=== PATIENT | female | born 1975 | race African-American/Black ===

== ENCOUNTER 2016-09-01 22:44 | Emergency (ER) | payer MEDICARE, MEDICAID ==
--- NOTE | 2016-09-02 04:43 | ER Document Report ---
ED General - General Chief Complaint: Vaginal Discharge Stated Complaint: VAGINAL DISCHARGE/PAIN Notes: Patient is 41 of female presents with complaint of some vaginal pain. It started last week 4 hours. She says that she does douche on a regular basis. She says that she thinks may be she's done too much is now she now has a lot of pelvic irritation. No abnormal discharge. No fevers. No vomiting. No lower abdominal pain. No other complaints at this time. TRAVEL OUTSIDE OF THE [place] IN LAST 30 DAYS: No - Related Data Allergies/Adverse Reactions: Iodinated Contrast Media - Oral and [IV Dye, Iodine Containing] Allergy ( Verified 09/09/15 09:04) iodine [Iodine] Allergy (Verified 09/09/15 09:04) Penicillins Allergy (Verified 09/09/15 09:04) Shellfish * [Shellfish] Allergy (Verified 09/09/15 09:04) Past Medical History - Social History Smoking Status: Unknown if Ever Smoked Frequency of alcohol use: None Drug Abuse: None Family History: DM, Hypertension Patient has suicidal ideation: No Patient has homicidal ideation: No - Past Medical History Cardiac Medical History: Reports: Hx Hypertension Pulmonary Medical History: Reports: Hx Bronchitis Endocrine Medical History: Reports: Hx Diabetes Mellitus Type 2 Renal/ Medical History: Denies: Hx Peritoneal Dialysis Psychiatric Medical History: Reports: Hx Bipolar Disorder, Hx Depression Past Surgical History: Reports: Hx Adenoidectomy, Hx Section - X4, Hx Cholecystectomy, Hx Tubal Ligation - Immunizations Hx Diphtheria, Pertussis, Tetanus Vaccination: No Review of Systems - Review of Systems Notes: My Normal Review Basic REVIEW OF SYSTEMS: CONSTITUTIONAL : Denies fever, chills, or sweats. Denies recent illness. GASTROINTESTINAL: Denies abdominal pain. Denies nausea, vomiting, or diarrhea. Denies constipation. Last BM: GENITOURINARY: Denies difficulty urinating, painful urination, burning, frequency, or blood in urine. FEMALE GENITOURINARY: Vaginal pain MUSCULOSKELETAL: Denies neck or back pain or joint pain or swelling. SKIN: Denies rash or skin lesions. NEUROLOGICAL: Denies altered mental status or loss of consciousness. Denies headache. Denies weakness or paralysis or loss of use of either side. Denies problems with gait or speech. Denies sensory or motor loss. ALL OTHER SYSTEMS REVIEWED AND NEGATIVE. Physical Exam - Vital signs Vitals: Temp Pulse BP Pulse Ox 98.0 F 98 132/84 H 97 09/01/16 22:50 09/01/16 22:50 09/01/16 22:50 09/01/16 22:50 - Notes Notes: General Appearance: Well nourished, alert, cooperative, no acute distress, mild to moderate obvious discomfort. Vitals: reviewed, See vital signs table. Lungs: No wheezing, No rales, No rhonci, No accessory muscle use, good air exchange bilaterally. Heart: Normal rate, Regular rythm, No murmur, no rub Abdomen: Normal BS, soft, No rigidity, No abdominal tenderness, No guarding, no rebound, no abdominal masses, no organomegaly Pelvic: Normal external genitalia. No blood in vaginal vault. No abnormal discharge. Extremities: strength 5/5 in all extremities, good pulses in all extremities, no swelling or tenderness in the extremities, no edema. Skin: warm, dry, appropriate color, no rash Neuro: speech clear, oriented x 3, normal affect, responds appropriately to questions. Course - Vital Signs Vital signs: Temp Pulse Resp BP Pulse Ox 98.2 F 79 20 104/53 L 96 09/02/16 05:24 09/02/16 05:24 09/02/16 05:24 09/02/16 05:24 09/02/16 05:24 - Transfer of Care Notes: 09/02/16 06:46 I do not see abnormality pelvic exam. I suspect patient probably has some vaginal irritation from frequent douche treatments that she doesn't home. I encourage her to have cut back and to not do any further douche treatments until her symptoms have completely resolved. No sexual activity until symptoms are resolved. Patient encouraged to return to ER if she has fevers, worsening pain, abnormal discharge, or any further concerns. Patient agrees with plan will be discharged home. Dictation of this chart was performed using voice recognition software; therefore, there may be some unintended grammatical errors. Discharge - Discharge Clinical Impression: Vaginal pain Condition: Good Disposition: HOME, SELF-CARE Instructions: Oral Narcotic Medication ([facility]) Additional Instructions: PLease avoid sexual activity for until you are completely pain free. Please return to the ER immediately if you develop worsening pain, fevers, or feel unwell. Please follow up with your doctor for reevaluation in 3-5 days. Forms: Return to School Referrals: GUS DARLING FNP [Primary Care Provider] - Follow up in 3-5 days
[2016-09-02] MEDS ORDERED: HYDROCODONE/ACETAMINOPHEN 5-325 MG 6 TAB/DSPK PO PRN (04:45)
[2016-09-02 05:25] VITALS: BP 104/53
[2016-09-02 05:27] LABS: CHLAM PCR NOT DETECTED (NOT DETECT)
== END 2016-09-02 05:28 | disposition home or self-care (01) ==
LOC: ER 22:44
DX: N89.8 Other specified noninflammatory disorders of vagina (principal); R10.2 Pelvic and perineal pain; I10 Essential (primary) hypertension; E11.9 Type 2 diabetes mellitus without complications; Z90.49 Acquired absence of other specified parts of digestive tract; Z91.013 Allergy to seafood; Z88.0 Allergy status to penicillin; Z98.51 Tubal ligation status
CPT/HCPCS: 99283; 87210; 87491; 87591; A9270

== ENCOUNTER → 2016-09-05 | Outpatient (CLI) | payer MEDICARE, MEDICAID ==
--- NOTE | 2016-09-05 12:47 | WOMENS IMAGING REPORT ---
EXAM DESCRIPTION: BILAT SCREENING MAMMO W/CAD COMPLETED DATE/TIME: 09/05/2016 10:06 am REASON FOR STUDY: Z12.31, ROUTINE SCREENING MAMMO Z12.31 ENCNTR SCREEN MAMMOGRAM FOR MALIGNANT NEOP LASM OF DARWIN COMPARISON: None. TECHNIQUE: Standard craniocaudal and mediolateral oblique views of each breast recorded using Domoba l acquisition. LIMITATIONS: None. FINDINGS: Findings present which are benign by mammographic criteria. No suspicious masses, calcifi cations or architectural distortion. Benign calcifications left breast. Read with the assistance of CAD. .[facility] - R2 Cenova Version 1.3 .[facility] - R2 Cenova Version 1.3 .[facility] - R2 Cenova Version 2.4 .[facility] [place] Cenova Version 2.4 .[facility] - R2 Butcher Version 9.2 Benign mammographic findings may include one or more of the following: Smooth masses, popcorn/rim/co arse calcifications, asymmetries, post-procedure changes, and lesions with long-standing stability. BREAST DENSITY: a. The breasts are almost entirely fatty. BIRAD: 2 BENIGN FINDING(S) RECOMMENDATION: ROUTINE SCREENING COMMENT: PATIENT NOTIFIED BY LETTER. The [employer] [place] [employer] [employer] recommends an annual screening mammogram for women aged 40 years or over. Each patient will receive a reminder prior to the anniversary date of her mammogram. The [employer] [place] [employer] ([employer]) has developed recommendations for screening MRI of the breast s in certain patient populations, to be used in conjunction with mammography. Breast MRI surveillanc e may be appropriate for women with more than 20% lifetime risk of developing breast cancer as deter mined by genetic testing, significant family history of the disease, or history of mantle radiation f or Hodgkins Disease. ACR Practice Guidelines 2008. TECHNICAL DOCUMENTATION: FINDING NUMBER: (1) ASSESSMENT: (1) JOB ID: [id number] [employer]- All Rights Reserved
== END ==
LOC: WI 09:26
PROVIDERS: ATTEND Nurse Practitioner Family
DX: Z12.31 Encounter for screening mammogram for malignant neoplasm of breast (principal)
CPT/HCPCS: 77067; G0202

== ENCOUNTER 2016-09-27 23:12 | Emergency (ER) | payer MEDICARE, MEDICAID ==
[2016-09-27] MEDS ORDERED: ASPIRIN 81 MG TABLET, CHEWABLE PO ONE (23:38)
[2016-09-28 02:01] LABS: ABSOLUTE BASOPHILS # (AUTO) 0.1 10^3/uL (0.0-0.2); ABSOLUTE EOSINOPHILS # (AUTO) 0.1 10^3/uL (0.0-0.6); ABSOLUTE LYMPHOCYTES (AUTO) 4.5 10^3/uL (0.5-4.7); ABSOLUTE MONOCYTES (AUTO) 0.6 10^3/uL (0.1-1.4); ABSOLUTE NEUT (AUTO) 5.5 10^3/uL (1.7-8.2); EOSINOPHILS % (AUTO) 1.1 % (0-6); HEMATOCRIT 37.8 % (36.0-47.0); HEMOGLOBIN 12.6 g/dL (12.0-15.5); LYMPHOCYTES % (AUTO) 41.7 % (13-45); MEAN CORPUSCULAR HGB CONC 33.4 g/dL (32.0-36.0); MEAN CORPUSCULAR VOLUME 90 fl (80-97); MONOCYTES % (AUTO) 5.3 % (3-13); RED BLOOD COUNT 4.21 10^6/uL (3.72-5.28); SEGMENTED NEUTROPHILS % (AUTO) 50.9 % (42-78); WHITE BLOOD COUNT 10.8 10^3/uL (4.0-10.5)
[2016-09-28 02:22] LABS: ALANINE AMINOTRANSFERASE 18 U/L (9-52); ALKALINE PHOSPHATASE 119 U/L (38-126); ANION GAP 9 (5-19); ASPARTATE AMINO TRANSFERASE 44 U/L (14-36); BILIRUBIN,TOTAL 0.4 mg/dL (0.2-1.3); BLOOD UREA NITROGEN 10 mg/dL (7-20); CALCIUM 9.8 mg/dL (8.4-10.2); CARBON DIOXIDE 32 mmol/L (22-30); CHLORIDE 102 mmol/L (98-107); CREATINE KINASE 37 U/L (30-135); CREATININE RESULT 0.64 mg/dL (0.52-1.25); GLUCOSE 103 mg/dL (75-110); POTASSIUM 4.5 mmol/L (3.6-5.0); SODIUM 142.5 mmol/L (137-145); TOTAL PROTEIN 8.2 g/dL (6.3-8.2)
--- NOTE | 2016-09-28 02:29 | ER Document Report ---
ED General - General Chief Complaint: Chest Pain Stated Complaint: CHEST PAIN Notes: Patient is a 41-year-old female who presents with complaint of chest pain. Pain is in the right upper chest and radiates into the right trapezius area and causes a mild headache. She says she woke up when she rolled around in bed and felt the pain. She says the pain is worse when she coughs or if she tries to move her body forward. She says the pain is now much improved but is still there slightly. No fevers. No vomiting. No diarrhea. Patient says her pain is much improved in comparison to before. No history of hypertension. She does have a history diabetes. No history of coronary disease. No recent fevers or infections. TRAVEL OUTSIDE OF THE [place] IN LAST 30 DAYS: No - Related Data Allergies/Adverse Reactions: Iodinated Contrast Media - Oral and [IV Dye, Iodine Containing] Allergy ( Verified 09/09/15 09:04) iodine [Iodine] Allergy (Verified 09/09/15 09:04) Penicillins Allergy (Verified 09/09/15 09:04) Shellfish * [Shellfish] Allergy (Verified 09/09/15 09:04) Past Medical History - Social History Smoking Status: Unknown if Ever Smoked Frequency of alcohol use: None Drug Abuse: None Family History: DM, Hypertension Patient has suicidal ideation: No Patient has homicidal ideation: No - Past Medical History Cardiac Medical History: Reports: Hx Hypertension Pulmonary Medical History: Reports: Hx Bronchitis Endocrine Medical History: Reports: Hx Diabetes Mellitus Type 2 Renal/ Medical History: Denies: Hx Peritoneal Dialysis Psychiatric Medical History: Reports: Hx Bipolar Disorder, Hx Depression Past Surgical History: Reports: Hx Adenoidectomy, Hx Section - X4, Hx Cholecystectomy, Hx Tubal Ligation - Immunizations Hx Diphtheria, Pertussis, Tetanus Vaccination: No Review of Systems - Review of Systems Notes: My Normal Review Basic REVIEW OF SYSTEMS: CONSTITUTIONAL : Denies fever, chills, or sweats. Denies recent illness. EENT: Denies eye, ear, throat, or mouth pain or symptoms. Denies nasal or sinus congestion. CARDIOVASCULAR: Has chest pain RESPIRATORY: Some shortness of breath with the pain. GASTROINTESTINAL: Denies abdominal pain. Denies nausea, vomiting, or diarrhea. Denies constipation. Last BM: GENITOURINARY: Denies difficulty urinating, painful urination, burning, frequency, or blood in urine. FEMALE GENITOURINARY: Denies vaginal bleeding, abnormal or irregular periods. LMP: MUSCULOSKELETAL: Denies neck or back pain or joint pain or swelling. SKIN: Denies rash or skin lesions.nds. NEUROLOGICAL: Denies altered mental status or loss of consciousness. Denies headache. Denies weakness or paralysis or loss of use of either side. Denies problems with gait or speech. Denies sensory or motor loss. ALL OTHER SYSTEMS REVIEWED AND NEGATIVE. Physical Exam - Vital signs Vitals: Resp 23 H 09/28/16 01:53 - Notes Notes: General Appearance: Well nourished, alert, cooperative, no acute distress, no obvious discomfort. Vitals: reviewed, See vital signs table. Head: no swelling or tenderness to the head Eyes: PERRL, EOMI, Conjuctiva clear Mouth: No decreasd moisture Chest wall: Pain is reproducible with palpation of the anterior chest wall and palpation of the trapezius muscle and the right side. Patient has significant increase in pain when she grabs the bed rails impulsive self forward off the bed. Neck: Supple, no neck tenderness, No thyromegaly Lungs: No wheezing, No rales, No rhonci, No accessory muscle use, good air exchange bilaterally. Heart: Normal rate, Regular rythm, No murmur, no rub Abdomen: Normal BS, soft, No rigidity, No abdominal tenderness, No guarding, no rebound, no abdominal masses, no organomegaly Extremities: strength 5/5 in all extremities, good pulses in all extremities, no swelling or tenderness in the extremities, no edema. Skin: warm, dry, appropriate color, no rash Neuro: speech clear, oriented x 3, normal affect, responds appropriately to questions. Course - Vital Signs Vital signs: Temp Pulse Resp BP Pulse Ox 17 126/81 H 97 09/28/16 06:01 09/28/16 06:00 09/28/16 06:01 - Laboratory Result Diagrams: 09/28/16 01:30 09/28/16 01:30 Laboratory results interpreted by me: 09/28/16 09/28/16 01:30 01:30 WBC 10.8 H Carbon Dioxide 32 H AST 44 H - EKG Interpretation by Me Additional EKG results interpreted by me: 09/28/16 02:29 EKG is reviewed and interpreted by me. EKG shows normal sinus rhythm with rate of [address] segment elevation or depression. No ischemic T wave inversions. AL interval, QRS duration, QTC intervals are within normal range. Old EKG for comparison is from 04/09/2016. 09/28/16 05:28 EKG #2 is reviewed and interpreted by me. EKG shows sinus rhythm with rate of 85 eats per minute. No ST segment elevation or depression. No ischemic T wave inversions. AL level, QRS duration, QTC intervals are within normal range. - Transfer of Care Notes: 09/28/16 06:57 I feel patient is safe to be discharged home. She looks very well. Patient's pain seems more consistent muscle skeletal disease. Her heart score is 2. She has a negative troponin and delta troponin. Her initial EKG and her repeat EKG are both negative. Her pain is worse with palpation and with movement. At this time I feel she is very low risk and safe to be discharged home to follow- up with primary care doctor for possible outpatient stress testing. I encourage her to return to ER if she has change in location of pain, increased pain, or difficulty breathing. Patient agrees with plan and will be discharged home. Dictation of this chart was performed using voice recognition software; therefore, there may be some unintended grammatical errors. Discharge - Discharge Clinical Impression: Chest pain Qualifiers: Chest pain type: unspecified Qualified Code(s): R07.9 - Chest pain, unspecified Condition: Good Disposition: HOME, SELF-CARE Additional Instructions: CHEST PAIN OF UNCLEAR CAUSE: The exact cause of your chest pain isn't clear. Fortunately, there is no evidence of a dangerous medical condition. Further testing may be required to find the source of the pain. Most often, we find that this pain is coming from the chest wall -- the muscles or rib joints in the chest. But chest pain can come from the lung and lung lining, the esophagus, the heart valves or heart lining, and even the stomach or gallbladder. Rest. Eat lightly until the pain is gone. We may prescribe medicine for pain and inflammation. You should call the physician immediately if the pain radiates to the shoulder, jaw or arms; if you start to run a fever or develop a cough; or if you develop shortness of breath, or other new or alarming symptoms. NORMAL EXAM AND WORKUP: At this time, your examination and workup show no significant abnormality. No significant abnormal physical findings were noted. All laboratory, EKG, and imaging (x-ray) studies that were ordered show no significant abnormality. Although your examination and all studies that were ordered showed no significant abnormal finding, there are no examinations and no studies that are 100% accurate. There is always the possibility that some abnormality could exist and not be detected with physical examination or within the limits and capabilities of laboratory and other studies. You should return or follow up as you were instructed on your visit today for further evaluation if your symptoms do not resolve. CHEST WALL PAIN: Your chest pain may be coming from the chest wall. This is often caused by straining the muscles or joints in the chest during physical activity, direct trauma, coughing, or vigorous vomiting. Persons with arthritis are especially prone to this type of pain, due to inflammation of the cartilage joints near the breast bone. Occasionally, no cause can be found. Rest from strenuous physical activity. This kind of chest pain is usually made worse by movement of the chest. Depending on the symptoms, we may prescribe medicine for pain, muscle relaxation, and antiinflammatory effects. If the pain is new, and seems to be due to muscle strain, cold packs can help. Otherwise, apply gentle warmth to the painful area for 15 minutes every hour or two. You should call contact the doctor immediately if things change. Further evaluation is needed if you develop a fever or cough, if the nature of the pain changes, or if you become short of breath. FOLLOW-UP CARE: If you have been referred to a physician for follow-up care, call the physician s office for an appointment as you were instructed or within the next two days. If you experience worsening or a significant change in your symptoms, notify the physician immediately or return to the Emergency Department at any time for re-evaluation. Please return to the ER immediately if you have worsening pain, pain that is a dislocation of her chest, difficulty breathing, or if you feel that your symptoms are worsening. Please follow-up with your doctor for reevaluation and for possible referral for outpatient stress testing. Prescriptions: Naproxen [Naprosyn 250 mg Tablet] 250 mg PO BID #20 tablet Referrals: MICHELLE MCDANIEL MD [Primary Care Provider] - Follow up in 3-5 days
[2016-09-28 02:33] LABS: CREATINE KINASE MB 0.41 ng/mL (<4.55)
[2016-09-28 02:36] LABS: TROPONIN I < 0.012 ng/mL
[2016-09-28 07:15] VITALS: BP 134/83
--- NOTE | 2016-09-28 10:35 | EKG REPORT ---
SEVERITY:- ABNORMAL ECG - SINUS RHYTHM NONSPECIFIC T ABNORMALITIES, ANT-LAT LEADS : Confirmed by: Fatoumata Garcia 28-Sep-2016 10:35:05
--- NOTE | 2016-09-28 10:35 | EKG REPORT ---
SEVERITY:- NORMAL ECG - SINUS RHYTHM : Confirmed by: Fatoumata Garcia 28-Sep-2016 10:34:30
== END 2016-09-28 07:15 | disposition home or self-care (01) ==
LOC: ER 23:12
DX: R07.9 Chest pain, unspecified (principal); R51 Headache; I10 Essential (primary) hypertension; E11.9 Type 2 diabetes mellitus without complications; Z88.0 Allergy status to penicillin; Z91.013 Allergy to seafood; Z90.49 Acquired absence of other specified parts of digestive tract; Z98.51 Tubal ligation status
CPT/HCPCS: 93005 ×2; 99285; 36415; 82553; 82550; 85025; 80053; 84484; 71010; 93010 ×2; A9270

== ENCOUNTER 2016-11-09 21:36 | Emergency (ER) | payer MEDICARE, MEDICAID ==
[2016-11-10 04:08] LABS: ABSOLUTE BASOPHILS # (AUTO) 0.1 10^3/uL (0.0-0.2); ABSOLUTE EOSINOPHILS # (AUTO) 0.1 10^3/uL (0.0-0.6); ABSOLUTE LYMPHOCYTES (AUTO) 4.3 10^3/uL (0.5-4.7); ABSOLUTE MONOCYTES (AUTO) 0.7 10^3/uL (0.1-1.4); ABSOLUTE NEUT (AUTO) 5.3 10^3/uL (1.7-8.2); BASOPHILS % (AUTO) 0.8 % (0-2); EOSINOPHILS % (AUTO) 0.8 % (0-6); HEMATOCRIT 37.4 % (36.0-47.0); HEMOGLOBIN 12.6 g/dL (12.0-15.5); HGB HCT DIFFERENCE 0.4; LYMPHOCYTES % (AUTO) 41.2 % (13-45); MEAN CORPUSCULAR HEMOGLOBIN 29.9 pg (27.0-33.4); MEAN CORPUSCULAR HGB CONC 33.6 g/dL (32.0-36.0); MEAN CORPUSCULAR VOLUME 89 fl (80-97); MONOCYTES % (AUTO) 6.8 % (3-13); RED CELL DISTRIBUTION WIDTH 13.8 % (11.5-14.0); SEGMENTED NEUTROPHILS % (AUTO) 50.4 % (42-78); WHITE BLOOD COUNT 10.6 10^3/uL (4.0-10.5)
[2016-11-10 04:12] LABS: APPEARANCE,URINE SLIGHTLY-CLOUDY; BILIRUBIN,URINE NEGATIVE (NEGATIVE); GLUCOSE, URINE NEGATIVE (NEGATIVE); KETONES,URINE NEGATIVE (NEGATIVE); LEUKOCYTE ESTERASE,URINE NEGATIVE (NEGATIVE); NITRITE,URINE NEGATIVE (NEGATIVE); PROTEIN,URINE NEGATIVE (NEGATIVE); URINE SPECIFIC GRAVITY 1.012; UROBILINOGEN,URINE NEGATIVE mg/dL (<2.0)
[2016-11-10 04:26] LABS: ALANINE AMINOTRANSFERASE 24 U/L (9-52); ALBUMIN 4.1 g/dL (3.5-5.0); ALKALINE PHOSPHATASE 86 U/L (38-126); ANION GAP 12 (5-19); ASPARTATE AMINO TRANSFERASE 27 U/L (14-36); BILIRUBIN,DIRECT 0.3 mg/dL (0.0-0.4); BILIRUBIN,TOTAL 0.4 mg/dL (0.2-1.3); BLOOD UREA NITROGEN 10 mg/dL (7-20); CALCIUM 9.5 mg/dL (8.4-10.2); CARBON DIOXIDE 25 mmol/L (22-30); CHLORIDE 105 mmol/L (98-107); CREATININE RESULT 0.66 mg/dL (0.52-1.25); GLUCOSE 111 mg/dL (75-110); SODIUM 141.6 mmol/L (137-145); TOTAL PROTEIN 7.7 g/dL (6.3-8.2)
--- NOTE | 2016-11-10 04:46 | ER Document Report ---
ED GI/ - General Chief Complaint: Diarrhea Stated Complaint: NAUSEA,DIARRHEA,ABDOMINAL PAIN Mode of Arrival: Ambulatory Information source: Patient Notes: 41-year-old Female presents to the emergency department complaining of generalized abdominal cramping with associated nausea and diarrhea. Reports 3 episodes of non-bloody diarrhea this evening. Reports persistent nausea without vomiting. Denies fever, chest pain, shortness of breath. Reports similar episodes in the past. TRAVEL OUTSIDE OF THE [place] IN LAST 30 DAYS: No - HPI Patient complains to provider of: Abdominal pain, Diarrhea Onset: This evening Timing/Duration: Intermittent, Persistent Quality of pain: Cramping Severity at maximum: Moderate Severity in ED: Almost gone Pain Level: 2 Vaginal bleeding (Compared to normal period): None Associated symptoms: Diarrhea, Nausea Similar symptoms previously: Yes Recently seen / treated by doctor: No - Related Data Allergies/Adverse Reactions: Iodinated Contrast Media - Oral and [IV Dye, Iodine Containing] Allergy ( Verified 11/09/16 22:25) iodine [Iodine] Allergy (Verified 11/09/16 22:25) Penicillins Allergy (Verified 11/09/16 22:25) Shellfish * [Shellfish] Allergy (Verified 11/09/16 22:25) Past Medical History - General Information source: Patient - Social History Smoking Status: Never Smoker Frequency of alcohol use: None Drug Abuse: None Lives with: Family Family History: DM, Hypertension Patient has suicidal ideation: No Patient has homicidal ideation: No - Past Medical History Cardiac Medical History: Reports: Hx Hypertension Pulmonary Medical History: Reports: Hx Bronchitis Endocrine Medical History: Reports: Hx Diabetes Mellitus Type 2 Renal/ Medical History: Denies: Hx Peritoneal Dialysis Psychiatric Medical History: Reports: Hx Bipolar Disorder, Hx Depression Past Surgical History: Reports: Hx Adenoidectomy, Hx Section - X4, Hx Cholecystectomy, Hx Tubal Ligation - Immunizations Hx Diphtheria, Pertussis, Tetanus Vaccination: Yes Review of Systems - Review of Systems Constitutional: No symptoms reported EENT: No symptoms reported Cardiovascular: No symptoms reported Respiratory: No symptoms reported Gastrointestinal: See HPI Genitourinary: No symptoms reported Female Genitourinary: No symptoms reported Musculoskeletal: No symptoms reported Skin: No symptoms reported Hematologic/Lymphatic: No symptoms reported Neurological/Psychological: No symptoms reported -: Yes All other systems reviewed and negative Physical Exam - Vital signs Vitals: Temp Pulse Resp BP Pulse Ox 98.3 F 102 H 20 135/76 H 97 11/09/16 22:26 11/09/16 22:26 11/09/16 22:26 11/09/16 22:26 11/09/16 22:26 - General General appearance: Appears well, Alert In distress: None - HEENT Head: Normocephalic, Atraumatic Eyes: Normal Conjunctiva: Normal Pupils: PERRL Ears: Normal External canal: Normal Tympanic membrane: Normal Sinus: Normal Nasal: Normal Mouth/Lips: Normal Mucous membranes: Normal, Moist Pharynx: Normal. No: Blood in hypopharynx, Erythema, Exudate, Peritonsillar abscess, Post nasal drainage, Retropharyngeal abscess, Tonsillar hypertrophy, Uvular edema, Potential airway comprom., Other Neck: Normal. No: Anterior cervical chain, Posterior cervical chain, Lymphadenopathy, Meningismus, Subcutaneous emphysema - Respiratory Respiratory status: No respiratory distress Chest status: Nontender Breath sounds: Normal - CTAB Chest palpation: Normal - Cardiovascular Rhythm: Regular Heart sounds: Normal auscultation Murmur: No Pulses: Normal: Radial Normal capillary refill: Yes - Abdominal Inspection: Normal Distension: No distension Bowel sounds: Normal Tenderness: Nontender. No: Tender, McBurney's point, Cramer's sign, Guarding, Rebound, Other Organomegaly: No organomegaly - Back Back: Normal, Nontender - Extremities General upper extremity: Normal inspection, Nontender, Normal color, Normal ROM , Normal strength, Normal temperature. No: Edema General lower extremity: Normal inspection, Nontender, Normal color, Normal ROM , Normal strength, Normal temperature, Normal weight bearing. No: Edema, Gerald' s sign - Neurological Neuro grossly intact: Yes Cognition: Normal Orientation: AAOx4 Reeders Coma Scale Eye Opening: Spontaneous Reeders Coma Scale Verbal: Oriented Reeders Coma Scale Motor: Obeys Commands Anders Coma Scale Total: 15 Speech: Normal Motor strength normal: LUE, RUE, LLE, RLE Sensory: Normal - Psychological Associated symptoms: Normal affect, Normal mood - Skin Skin Temperature: Warm Skin Moisture: Dry Skin Color: Normal Course - Re-evaluation Re-evalutation: 11/10/16 04:47 Patient hemodynamically stable, in no distress, afebrile, nontoxic, and appears well-hydrated. Labs and acute abdominal series x-ray unremarkable. Patient presentation and physical exam findings not suggestive of peritonitis, appendicitis, cholecystitis, or other emergent etiology at this time. Patient tolerating oral fluids without difficulty or vomiting at this time. Patient appears stable for discharge and agrees with home care, follow-up with PCP, and ED return precautions. - Vital Signs Vital signs: Temp Pulse Resp BP Pulse Ox 98.3 F 88 20 148/91 H 97 11/09/16 22:26 11/10/16 05:11 11/10/16 05:11 11/10/16 05:11 11/10/16 05:11 - Laboratory Result Diagrams: 11/10/16 03:40 11/10/16 03:40 Laboratory results interpreted by me: 11/10/16 11/10/16 03:40 03:40 WBC 10.6 H Glucose 111 H - Diagnostic Test Radiology reviewed: Image reviewed, Reports reviewed Discharge - Discharge Clinical Impression: Nausea, vomiting and diarrhea Abdominal pain Qualifiers: Abdominal location: generalized Qualified Code(s): R10.84 - Generalized abdominal pain Condition: Stable Disposition: HOME, SELF-CARE Instructions: Abdominal Pain ([facility]), Diarrhea, Nonspecific ([facility]), Vomiting ([facility]) , Observation for Appendicitis ([facility]) Additional Instructions: Drink plenty of fluids. Limit your intake of fatty, salty, spicy foods. Follow-up with your primary care provider in the next 1-2 days. Return to the emergency department for any worsening symptoms or concerns. Prescriptions: Ondansetron [Zofran Odt 4 mg Tablet] 1 tab PO Q4H PRN #10 tab.rapdis PRN Reason: For Nausea/Vomiting Referrals: MICHELLE MCDANIEL MD [Primary Care Provider] - Follow up tomorrow
[2016-11-10 05:12] VITALS: BP 148/91
== END 2016-11-10 05:11 | disposition home or self-care (01) ==
LOC: ER 21:36
DX: R11.2 Nausea with vomiting, unspecified (principal); R19.7 Diarrhea, unspecified; R10.84 Generalized abdominal pain
CPT/HCPCS: 36415; 74022; 80053; 81001; 85025; 99284

== ENCOUNTER → 2017-03-10 | Outpatient (CLI) | payer MEDICARE, MEDICAID ==
--- NOTE | 2017-03-10 15:43 | RADIOLOGY REPORT (SQ) ---
EXAM DESCRIPTION: HIPS BILATERAL COMPLETED DATE/TIME: 03/10/2017 3:32 pm REASON FOR STUDY: PAIN IN RIGHT HIP,PAIN IN LEFT HIP M25.551 PAIN IN RIGHT HIP M25.552 PAIN IN LEF T HIP COMPARISON: None. NUMBER OF VIEWS: Two views TECHNIQUE: AP pelvis and additional frog-leg view of both hips. LIMITATIONS: None. FINDINGS: MINERALIZATION: Normal. HIPS: No acute fracture or dislocation. No worrisome bone lesions. PELVIS AND SACRUM: No acute fracture or dislocation. No worrisome bone lesions. PUBIS AND ISCHIUM: No acute fracture. LOWER LUMBAR SPINE: No significant findings as visualized. SOFT TISSUES: No findings. OTHER: No other significant finding. IMPRESSION: NEGATIVE STUDY OF THE PELVIS AND HIPS. TECHNICAL DOCUMENTATION: JOB ID: [id number] [employer]- All Rights Reserved
== END ==
LOC: OD 03-05 12:53
PROVIDERS: ATTEND Family Medicine
DX: M25.551 Pain in right hip (principal); M25.552 Pain in left hip
CPT/HCPCS: 73522

== ENCOUNTER 2017-05-18 12:17 | Emergency (ER) | payer MEDICARE, MEDICAID ==
[2017-05-18] MEDS ORDERED: IBUPROFEN 600 MG TABLET PO ONE (12:58)
--- NOTE | 2017-05-18 12:59 | ER Document Report ---
HPI - HPI Pain Level: 5 Context: Patient is a 42-year-old female with a history of bipolar that had previously been taking dopamine medications that caused her to develop tardive dyskinesia. Patient has been taking aggressive for about 3 months and recently increased her dosage about 3 weeks ago. Patient states that she woke up a couple of days ago with left neck discomfort that hurts with movement only. She has been taking her home medications. Which includes baclofen, tramadol, clonazepam, and coryza. Patient states that she has not followed up with the [facility] regarding this issue. - REPRODUCTIVE Reproductive: DENIES: : - DERM Skin Color: Normal Past Medical History - Social History Smoking Status: Current Every Day Smoker Family History: DM, Hypertension - Past Medical History Cardiac Medical History: Reports: Hx Hypertension Pulmonary Medical History: Reports: Hx Bronchitis Endocrine Medical History: Reports: Hx Diabetes Mellitus Type 2 Renal/ Medical History: Denies: Hx Peritoneal Dialysis Psychiatric Medical History: Reports: Hx Bipolar Disorder, Hx Depression Past Surgical History: Reports: Hx Adenoidectomy, Hx Section - X4, Hx Cholecystectomy, Hx Tubal Ligation - Immunizations Hx Diphtheria, Pertussis, Tetanus Vaccination: Yes Vertical Provider Document - CONSTITUTIONAL Notes: PHYSICAL EXAM GENERAL: Alert, interacts well. HEAD: Normocephalic, atraumatic. EXTREMITIES: Moves all 4 extremities spontaneously. No edema, radial and dorsalis pedis pulses 2/4 bilaterally. No cyanosis. Back: No evidence of spinous process tenderness to palpation. No evidence of deformities or step-offs. Patient with pain reproducible to palpation of the left trapezius. Patient states that it feels better after massaging the muscle. NEUROLOGICAL: Alert and oriented x4. Normal speech. PSYCH: Normal affect, normal mood. SKIN: Warm, dry, normal turgor. No rashes or lesions noted. - INFECTION CONTROL TRAVEL OUTSIDE OF THE [place] IN LAST 30 DAYS: No - RESPIRATORY O2 Sat by Pulse Oximetry: 95 Course - Re-evaluation Re-evalutation: 05/18/17 12:35 No evidence of a septic joint, gout flare, dislocation, or fracture on exam and imaging. Vitals wnl. At this time, I do not see an indication for labs or further imaging. Will discharge with conservative measures, return precautions, and follow-up recommendations. - Vital Signs Vital signs: Temp Pulse Resp BP Pulse Ox 98.3 F 85 16 109/64 95 05/18/17 12:21 05/18/17 12:21 05/18/17 12:21 05/18/17 12:21 05/18/17 12:21 Discharge - Discharge Clinical Impression: Muscle strain Condition: Good Disposition: HOME, SELF-CARE Instructions: Muscle Strain ([facility]), Exercise Program for the Shoulder ([facility]) Additional Instructions: Please continue to take your home tramadol, baclofen as prescribed. Please follow-up with [facility] tomorrow regarding her questions about your new medication. Referrals: MICHELLE MCDANIEL MD [Primary Care Provider] - Follow up as needed [facility] [Provider Group] - Follow up tomorrow
[2017-05-18 13:51] VITALS: BP 138/65
== END 2017-05-18 14:16 | disposition home or self-care (01) ==
LOC: ER 12:17
DX: T14.8XXA Other injury of unspecified body region, initial encounter (principal); F31.9 Bipolar disorder, unspecified; I10 Essential (primary) hypertension; E11.9 Type 2 diabetes mellitus without complications; F17.200 Nicotine dependence, unspecified, uncomplicated; Z79.899 Other long term (current) drug therapy; Z79.891 Long term (current) use of opiate analgesic
CPT/HCPCS: 99283; A9270

== ENCOUNTER → 2017-06-30 | Outpatient (CLI) | payer MEDICARE, MEDICAID ==
--- NOTE | 2017-06-30 13:38 | RADIOLOGY REPORT (SQ) ---
EXAM DESCRIPTION: LUMBAR SPINE COMPLETE COMPLETED DATE/TIME: 06/30/2017 1:14 pm REASON FOR STUDY: SACROCOCCYGEAL DISORDERS, NOT ELSEWHERE CLASSIFIED M54.2 CERVICALGIA M53.3 SACRO COCCYGEAL DISORDERS, NOT ELSEWHERE CLASSIFIED COMPARISON: None. NUMBER OF VIEWS: Five views including obliques. TECHNIQUE: AP, lateral, oblique, and sacral radiographic images acquired of the lumbar spine. LIMITATIONS: None. FINDINGS: MINERALIZATION: Normal. SEGMENTATION: Normal. No transitional anatomy. ALIGNMENT: Normal. VERTEBRAE: Maintained height. No fracture or worrisome bone lesion. DISCS: Preserved height. No significant osteophytes or end plate irregularity. POSTERIOR ELEMENTS: Pedicles and facets are intact. No pars defect or posterior arch defects. HARDWARE: None in the spine. PARASPINAL SOFT TISSUES: Normal. PELVIS: Intact as visualized. No fractures or worrisome bone lesions. SI joints intact. OTHER: No other significant finding. IMPRESSION: NORMAL 5 VIEW LUMBAR SPINE. TECHNICAL DOCUMENTATION: JOB ID: [id number] [employer]- All Rights Reserved
--- NOTE | 2017-07-01 14:31 | RADIOLOGY REPORT (SQ) ---
EXAM DESCRIPTION: C SP 4 OR 5 VIEWS COMPLETED DATE/TIME: 07/01/2017 2:07 pm REASON FOR STUDY: CERVICALGIA M54.2 CERVICALGIA M53.3 SACROCOCCYGEAL DISORDERS, NOT ELSEWHERE CLAS SIFIED COMPARISON: None. NUMBER OF VIEWS: Five views. TECHNIQUE: AP, lateral, obliques and odontoid radiographic images acquired of the cervical spine. LIMITATIONS: None. FINDINGS: MINERALIZATION: Normal. ALIGNMENT: Patient has convex rightward cervical curvature. There is also reversal of cervical lordo sis. Findings are likely due to muscle spasm VERTEBRAE: Vertebral bodies of normal height. DISCS: No significant osteophytes or sclerosis. Disc height maintained. FORAMINA: No significant foraminal stenosis LATERAL AND POSTERIOR ELEMENTS: Facets, lateral masses and spinous processes without significant find ings. HARDWARE: None in the spine. SOFT TISSUES: No masses or calcifications. Lung apices clear. OTHER: No other significant finding. IMPRESSION: Convex rightward cervical curvature with reversal of cervical lordosis likely due to mus lb spasm. No high-grade bony central or foraminal encroachment TECHNICAL DOCUMENTATION: JOB ID: [id number] [email or web address]- All Rights Reserved
== END ==
LOC: OD 12:30
PROVIDERS: ATTEND Family Medicine
DX: M54.2 Cervicalgia (principal); M53.3 Sacrococcygeal disorders, not elsewhere classified
CPT/HCPCS: 72050; 72110

== ENCOUNTER → 2017-08-12 | Outpatient (CLI) | payer MEDICARE, MEDICAID ==
--- NOTE | 2017-08-12 15:04 | RADIOLOGY REPORT (SQ) ---
EXAM DESCRIPTION: CHEST PA/LATERAL COMPLETED DATE/TIME: 08/12/2017 2:19 pm REASON FOR STUDY: COUGH COMPARISON: Chest films 09/28/2016, 04/09/2016, 06/12/2014 EXAM PARAMETERS: NUMBER OF VIEWS: two views TECHNIQUE: Digital Frontal and Lateral radiographic views of the chest acquired. RADIATION DOSE: NA LIMITATIONS: none FINDINGS: LUNGS AND PLEURA: No opacities, masses or pneumothorax. No pleural effusion. MEDIASTINUM AND HILAR STRUCTURES: No masses or contour abnormalities. HEART AND VASCULAR STRUCTURES: Heart normal size. No evidence for failure. BONES: No acute findings. HARDWARE: None in the chest. OTHER: No other significant finding. IMPRESSION: NO SIGNIFICANT RADIOGRAPHIC FINDING IN THE CHEST. TECHNICAL DOCUMENTATION: JOB ID: [id number] [employer]- All Rights Reserved
== END ==
LOC: OD 13:55
PROVIDERS: ATTEND Family Medicine
DX: R05 Cough (principal)
CPT/HCPCS: 71046

== ENCOUNTER → 2017-09-23 | Outpatient (CLI) | payer MEDICARE, MEDICAID ==
--- NOTE | 2017-09-23 13:02 | RADIOLOGY REPORT (SQ) ---
EXAM DESCRIPTION: KNEE LEFT 4 VIEWS COMPLETED DATE/TIME: 09/23/2017 12:15 pm REASON FOR STUDY: PAIN IN LEFT KNEE M25.561 PAIN IN RIGHT KNEE M25.562 PAIN IN LEFT KNEE COMPARISON: None. NUMBER OF VIEWS: Four views. TECHNIQUE: AP, lateral, and both oblique radiographic images acquired of the left knee. LIMITATIONS: None. FINDINGS: MINERALIZATION: Normal. BONES: No acute fracture or dislocation. No worrisome bone lesions. JOINT: No effusion. SOFT TISSUES: No soft tissue swelling. No radio-opaque foreign body. OTHER: No other significant finding. IMPRESSION: NEGATIVE STUDY OF THE LEFT KNEE. NO RADIOGRAPHIC EVIDENCE OF ACUTE INJURY. TECHNICAL DOCUMENTATION: JOB ID: [id number] [employer]- All Rights Reserved
--- NOTE | 2017-09-23 13:16 | RADIOLOGY REPORT (SQ) ---
EXAM DESCRIPTION: KNEE RIGHT 4 VIEWS COMPLETED DATE/TIME: 09/23/2017 12:15 pm REASON FOR STUDY: PAIN IN RIGHT KNEE M25.561 PAIN IN RIGHT KNEE M25.562 PAIN IN LEFT KNEE COMPARISON: None. NUMBER OF VIEWS: Four views. TECHNIQUE: AP, lateral, and both oblique radiographic images acquired of the right knee. LIMITATIONS: None. FINDINGS: MINERALIZATION: Normal. BONES: No acute fracture or dislocation. No worrisome bone lesions. JOINT: No effusion. SOFT TISSUES: No soft tissue swelling. No radio-opaque foreign body. OTHER: No other significant finding. IMPRESSION: NEGATIVE STUDY OF THE RIGHT KNEE. NO RADIOGRAPHIC EVIDENCE OF ACUTE INJURY. TECHNICAL DOCUMENTATION: JOB ID: [id number] [employer]- All Rights Reserved
== END ==
LOC: OD 11:44
PROVIDERS: ATTEND Family Medicine
DX: M25.561 Pain in right knee (principal); M25.562 Pain in left knee

== ENCOUNTER 2017-11-20 01:05 | Emergency (ER) | payer MEDICARE, MEDICAID ==
[2017-11-20] MEDS ORDERED: ASPIRIN 81 MG TABLET, CHEWABLE PO ONE (02:13)
[2017-11-20] MEDS ORDERED: KETOROLAC TROMETHAMINE 60 MG/2 ML SDV IV ONE (02:14)
[2017-11-20] MEDS ORDERED: PROCHLORPERAZINE EDISYLATE INJ 10 MG/2 ML VIAL IV ONE (02:14)
[2017-11-20] MEDS ORDERED: DIPHENHYDRAMINE HCL 50 MG/ML VIAL IV ONE (02:14)
--- NOTE | 2017-11-20 02:15 | ER Document Report ---
ED Burn/Smoke/Toxic Fumes - General Mode of Arrival: Ambulatory Information source: Patient TRAVEL OUTSIDE OF THE [place] IN LAST 30 DAYS: No <SANCHEZ MATA - Last Filed: 11/20/17 02:10> <YEE MAS - Last Filed: 11/20/17 06:31> - General Chief Complaint: Carbon Monoxide Exposure Stated Complaint: CHEST PAIN Time Seen by Provider: 11/20/17 01:54 Notes: Patient is a 42-year-old female with a history of diabetes and bipolar disorder presents the emergency department after possibly inhaling carbon monoxide. Patient states that she was driving home after work when her car began to emit black fumes further stating she believes she inhaled some black fumes as she was heading home. Patient states that when she got home she began to have a splitting headache and started having some chest pain. At bedside patient states that her chest pain is better. (SANCHEZ MATA) - Related Data Allergies/Adverse Reactions: Iodinated Contrast- Oral and IV Dye [IV Dye, Iodine Containing] Allergy ( Verified 05/18/17 12:21) iodine [Iodine] Allergy (Verified 05/18/17 12:21) Penicillins Allergy (Verified 05/18/17 12:21) Shellfish * [Shellfish] Allergy (Verified 05/18/17 12:21) Past Medical History - General Information source: Patient - Social History Smoking Status: Never Smoker Cigarette use (# per day): No Chew tobacco use (# tins/day): No Smoking Education Provided: No Frequency of alcohol use: None Drug Abuse: None Family History: DM, Hypertension, Other - [place] - Past Medical History Cardiac Medical History: Reports: Hx Hypertension Pulmonary Medical History: Reports: Hx Bronchitis Endocrine Medical History: Reports: Hx Diabetes Mellitus Type 2 Psychiatric Medical History: Reports: Hx Bipolar Disorder, Hx Depression Past Surgical History: Reports: Hx Adenoidectomy, Hx Section - X4, Hx Cholecystectomy, Hx Tubal Ligation - Immunizations Hx Diphtheria, Pertussis, Tetanus Vaccination: Yes <SANCHEZ MATA - Last Filed: 11/20/17 02:10> Review of Systems - Review of Systems Constitutional: No symptoms reported EENT: No symptoms reported Cardiovascular: See HPI, Chest pain Respiratory: No symptoms reported Gastrointestinal: No symptoms reported Genitourinary: No symptoms reported Female Genitourinary: No symptoms reported Musculoskeletal: No symptoms reported Skin: No symptoms reported Hematologic/Lymphatic: No symptoms reported Neurological/Psychological: See HPI, Headaches -: Yes All other systems reviewed and negative <SANCHEZ MATA - Last Filed: 11/20/17 02:10> Physical Exam <SANCHEZ MATA - Last Filed: 11/20/17 02:10> <YEE MAS - Last Filed: 11/20/17 06:31> - Vital signs Vitals: Temp Pulse Resp BP Pulse Ox 98.3 F 91 20 140/95 H 94 11/20/17 01:13 11/20/17 01:13 11/20/17 01:13 11/20/17 01:13 11/20/17 01:13 - Notes Notes: GENERAL: Alert, interacts well. No acute distress. HEAD: Normocephalic, atraumatic. EYES: Pupils equal, round, and reactive to light. Extraocular movements intact. ENT: Oral mucosa moist, tongue midline. NECK: Full range of motion. Supple. Trachea midline. LUNGS: Clear to auscultation bilaterally, no wheezes, rales, or rhonchi. No respiratory distress. HEART: Regular rate and rhythm. No murmurs, gallops, or rubs. ABDOMEN: Obese. Soft, non-tender. Non-distended. Bowel sounds present in all 4 quadrants. EXTREMITIES: Moves all 4 extremities spontaneously. No edema, radial and dorsalis pedis pulses 2/4 bilaterally. No cyanosis. NEUROLOGICAL: Alert and oriented x3. Normal speech. PSYCH: Normal affect, normal mood. SKIN: Warm, dry, normal turgor. No rashes or lesions noted. (SANCHEZ MATA) Course <SANCHEZ MATA - Last Filed: 11/20/17 02:10> - Laboratory Result Diagrams: 11/20/17 02:40 11/20/17 02:40 <YEE MAS - Last Filed: 11/20/17 06:31> - Re-evaluation Re-evalutation: 11/20/17 06:25 CBC unremarkable, blood gas does not show any elevated carbon monoxide, it is normal at 1.2, CMP unremarkable, cardiac enzymes negative, EKG nonischemic, chest x-ray does not show any sign of infiltrate. Patient's chest pain completely resolved after she found out that her EKG was normal. Patient will be discharged to home. (YEE MAS) - Vital Signs Vital signs: Temp Pulse Resp BP Pulse Ox 98.3 F 91 20 140/95 H 94 11/20/17 01:13 11/20/17 01:13 11/20/17 01:13 11/20/17 01:13 11/20/17 01:13 - Laboratory Laboratory results interpreted by me: 11/20/17 11/20/17 02:40 02:40 ABG pO2 78.9 L ABG HCO3 26.5 H ABG Total CO2 27.7 H Sodium 146.6 H BUN 6 L Total Bilirubin < 0.1 L - EKG Interpretation by Me Additional EKG results interpreted by me: 11/20/17 06:26 EKG shows sinus rhythm at a rate of 84, normal axis, normal intervals, no ST segment elevations or depressions, no T-wave inversions per my interpretation. ( YEE MAS) Discharge <SANCHEZ MATA - Last Filed: 11/20/17 02:10> <YEE MAS - Last Filed: 11/20/17 06:31> - Discharge Clinical Impression: Chest pain of uncertain etiology Headache Qualifiers: Headache type: unspecified Headache chronicity pattern: acute headache Intractability: not intractable Qualified Code(s): R51 - Headache Condition: Stable Disposition: HOME, SELF-CARE Additional Instructions: There is no evidence of significant carbon monoxide exposure today. There is no evidence of heart attack. There is no evidence of pneumonia. Referrals: MICHELLE MCDANIEL MD [Primary Care Provider] - Follow up as needed Scribe Attestation: 11/20/17 06:31 I personally performed the services described in the documentation, reviewed and edited the documentation which was dictated to the scribe in my presence, and it accurately records my words and actions. (YEE MAS) Scribe Documentation - Scribe Written by Oc:: Oc Stuart, 11/20/2017 02:15 acting as scribe for :: Melia <SANCHEZ MATA - Last Filed: 11/20/17 02:10>
[2017-11-20 02:56] LABS: ABSOLUTE BASOPHILS # (AUTO) 0.1 10^3/uL (0.0-0.2); ABSOLUTE EOSINOPHILS # (AUTO) 0.1 10^3/uL (0.0-0.6); ABSOLUTE LYMPHOCYTES (AUTO) 2.8 10^3/uL (0.5-4.7); ABSOLUTE MONOCYTES (AUTO) 0.4 10^3/uL (0.1-1.4); ABSOLUTE NEUT (AUTO) 4.2 10^3/uL (1.7-8.2); BASOPHILS % (AUTO) 0.8 % (0-2); EOSINOPHILS % (AUTO) 1.7 % (0-6); HEMATOCRIT 37.9 % (36.0-47.0); HEMOGLOBIN 12.5 g/dL (12.0-15.5); LYMPHOCYTES % (AUTO) 36.9 % (13-45); MEAN CORPUSCULAR HEMOGLOBIN 29.9 pg (27.0-33.4); MEAN CORPUSCULAR HGB CONC 33.1 g/dL (32.0-36.0); MEAN CORPUSCULAR VOLUME 90 fl (80-97); MONOCYTES % (AUTO) 5.7 % (3-13); PLATELET COUNT 401 10^3/uL (150-450); RED CELL DISTRIBUTION WIDTH 13.4 % (11.5-14.0); SEGMENTED NEUTROPHILS % (AUTO) 54.9 % (42-78); TOTAL CELLS COUNTED % (AUTO) 100 %; WHITE BLOOD COUNT 7.6 10^3/uL (4.0-10.5)
[2017-11-20 03:08] LABS: ANION GAP 13 (5-19); BLOOD UREA NITROGEN 6 mg/dL (7-20); CALCIUM 9.6 mg/dL (8.4-10.2); CARBON DIOXIDE 29 mmol/L (22-30); CHLORIDE 105 mmol/L (98-107); GLUCOSE 104 mg/dL (75-110); POTASSIUM 3.7 mmol/L (3.6-5.0); SODIUM 146.6 mmol/L (137-145); TOTAL PROTEIN 6.7 g/dL (6.3-8.2)
[2017-11-20 03:09] LABS: ALANINE AMINOTRANSFERASE 28 U/L (9-52); ALKALINE PHOSPHATASE 73 U/L (38-126); ASPARTATE AMINO TRANSFERASE 19 U/L (14-36); BILIRUBIN,TOTAL < 0.1 mg/dL (0.2-1.3); CREATINE KINASE 42 U/L (30-135)
[2017-11-20 03:13] LABS: ARTERIAL BLOOD BASE EXCESS 2.1 mmol/L; ARTERIAL BLOOD FIO2 ROOM AIR; ARTERIAL BLOOD H2CO3 1.21 mmol/L (1.05-1.35); ARTERIAL BLOOD HCO3 26.5 mmol/L (20-26); ARTERIAL BLOOD PCO2 40.3 mmHg (35-45); ARTERIAL BLOOD PH 7.44 (7.35-7.45); ARTERIAL BLOOD PO2 78.9 mmHg (80-100); ARTERIAL BLOOD TOTAL CO2 27.7 mmol/L (21-25)
[2017-11-20 03:20] LABS: CREATINE KINASE MB 0.56 ng/mL (<4.55)
[2017-11-20 03:21] LABS: TROPONIN I < 0.012 ng/mL
--- NOTE | 2017-11-20 04:11 | RADIOLOGY REPORT (SQ) ---
EXAM DESCRIPTION: CHEST SINGLE VIEW CLINICAL HISTORY: 42 years Female, chest pain, SOB COMPARISON: 1.3.18 NUMBER OF VIEWS/TECHNIQUE: 1/AP LIMITATIONS: As below. FINDINGS: Indeterminate opacity overlies the lateral left lower hemithorax, prominent cardiac enlargement, no pneumothorax, and partially obscured left lower bony thorax. IMPRESSION: Insufficient exam. Indeterminate opacity overlies the left lower hemithorax possibly artifactual. Consider attempted repeat evaluation or further evaluation using PA lateral CR or CT.
--- NOTE | 2017-11-20 06:01 | RADIOLOGY REPORT (SQ) ---
EXAM DESCRIPTION: CHEST 2 VIEWS CLINICAL HISTORY: 42 years Female, get lateral chest as recommended by radiology chest pain COMPARISON: 4.13.18, 08/12/2017. NUMBER OF VIEWS/TECHNIQUE: 2, PA and Lateral LIMITATIONS: None. FINDINGS: Normal lung volume. Clear parenchyma. Normal cardiac silhouette. Intact bony thorax. IMPRESSION: No acute cardiopulmonary findings.
[2017-11-20 07:21] VITALS: BP 131/89
--- NOTE | 2017-11-20 07:49 | EKG REPORT ---
SEVERITY:- NORMAL ECG - SINUS RHYTHM : Confirmed by: Akin Rivas MD 20-Nov-2017 07:48:43
== END 2017-11-20 07:23 | disposition home or self-care (01) ==
LOC: ER 01:05
DX: R07.9 Chest pain, unspecified (principal); R51 Headache; Z77.110 Contact with and (suspected) exposure to air pollution; Z82.49 Family history of ischemic heart disease and other diseases of the circulatory system; E66.9 Obesity, unspecified; Z68.43 Body mass index [BMI] 50.0-59.9, adult
CPT/HCPCS: 93005; 99284; 96374; 96375; 36415; 82375; 82553; 82803; 82550; 85025; 80053; 84484; 71046; 71045; 93010; A9270; J1200; J1885

== ENCOUNTER 2018-01-25 00:39 | Emergency (ER) | payer MEDICARE, MEDICAID ==
[2018-01-25] MEDS ORDERED: NORMAL SALINE 1000 ML 1,000 ML IV ONE (01:42)
[2018-01-25 02:22] LABS: APPEARANCE,URINE CLEAR; BILIRUBIN,URINE NEGATIVE (NEGATIVE); COLOR,URINE YELLOW; GLUCOSE, URINE NEGATIVE (NEGATIVE); KETONES,URINE NEGATIVE (NEGATIVE); LEUKOCYTE ESTERASE,URINE NEGATIVE (NEGATIVE); NITRITE,URINE NEGATIVE (NEGATIVE); PROTEIN,URINE NEGATIVE (NEGATIVE); URINE SPECIFIC GRAVITY 1.011; UROBILINOGEN,URINE NEGATIVE mg/dL (<2.0)
[2018-01-25 03:33] LABS: ABSOLUTE BASOPHILS # (AUTO) 0.1 10^3/uL (0.0-0.2); ABSOLUTE EOSINOPHILS # (AUTO) 0.1 10^3/uL (0.0-0.6); ABSOLUTE LYMPHOCYTES (AUTO) 3.6 10^3/uL (0.5-4.7); ABSOLUTE MONOCYTES (AUTO) 0.7 10^3/uL (0.1-1.4); ABSOLUTE NEUT (AUTO) 7.6 10^3/uL (1.7-8.2); BASOPHILS % (AUTO) 0.8 % (0-2); EOSINOPHILS % (AUTO) 0.8 % (0-6); HEMATOCRIT 38.4 % (36.0-47.0); LYMPHOCYTES % (AUTO) 29.9 % (13-45); MEAN CORPUSCULAR HEMOGLOBIN 30.1 pg (27.0-33.4); MEAN CORPUSCULAR HGB CONC 33.8 g/dL (32.0-36.0); MEAN CORPUSCULAR VOLUME 89 fl (80-97); MONOCYTES % (AUTO) 5.9 % (3-13); PLATELET COUNT 388 10^3/uL (150-450); RED BLOOD COUNT 4.31 10^6/uL (3.72-5.28); RED CELL DISTRIBUTION WIDTH 13.9 % (11.5-14.0); SEGMENTED NEUTROPHILS % (AUTO) 62.6 % (42-78); TOTAL CELLS COUNTED % (AUTO) 100 %; WHITE BLOOD COUNT 12.2 10^3/uL (4.0-10.5)
--- NOTE | 2018-01-25 03:59 | RADIOLOGY REPORT (SQ) ---
EXAM DESCRIPTION: CT ABDOMEN WITHOUT IV CONTRAST COMPLETED DATE/TME: 01/25/2018 02:48 CLINICAL HISTORY: Left abdominal pain. COMPARISON: I 09/09/2015 TECHNIQUE: CT of the abdomen and pelvis without IV contrast. Evaluation of the solid organs and vasculature is suboptimal due to lack of IV contrast. DLP: 1046 mGy-cm FINDINGS: Lung Bases: The visualized lung bases are clear. Bones: No destructive bone lesions identified. Abdomen: Liver: The liver has hepatomegaly and decreased density. Hypodensity in the right hepatic lobe likely representing cyst or hemangioma. Gallbladder: Prior cholecystectomy. Spleen, Pancreas, and Adrenal Glands: The spleen, pancreas, and adrenal glands are unremarkable. Kidneys: The kidneys have normal size and contour without evidence of hydronephrosis. No obstructing ureteral calculi. Vasculature: The aorta and IVC have normal caliber and position. Stomach: Small hiatal hernia. Other: No free intraperitoneal air. Fat-containing ventral hernia. No lymphadenopathy identified. Pelvis: Bladder: Urinary bladder is unremarkable. Bowel: Scattered diverticula throughout the colon. Short segment pericolic inflammatory change of the distal descending colon with tiny amount of free fluid. No well-circumscribed fluid collection. Appendix: The appendix is not identified. Pelvis: Uterus is not enlarged. IMPRESSION: 1. Acute diverticulitis of the distal descending colon. No pericolic abscess formation. 2. Small amount of free fluid. 3. Hepatic steatosis and hepatomegaly. This exam was performed according to our departmental dose-optimization program, which includes automated exposure control, adjustment of the mA and/or kV according to patient size and/or use of iterative reconstruction technique.
--- NOTE | 2018-01-25 04:01 | ER Document Report ---
ED GI/ - General Chief Complaint: Abdominal Pain Stated Complaint: ABDOMINAL PAINS Time Seen by Provider: 01/25/18 01:41 Notes: The patient is a 42-year-old female, past medical history cholecystectomy, presents with left lower quadrant abdominal pain for the past 2 days. She thinks she has a UTI because she is having dark urine. She denies nausea, vomiting, flank pain, fevers, dysuria, hematuria, diarrhea or constipation. TRAVEL OUTSIDE OF THE [place] IN LAST 30 DAYS: No - Related Data Allergies/Adverse Reactions: Iodinated Contrast- Oral and IV Dye [IV Dye, Iodine Containing] Allergy ( Verified 05/18/17 12:21) iodine [Iodine] Allergy (Verified 05/18/17 12:21) Penicillins Allergy (Verified 05/18/17 12:) Shellfish * [Shellfish] Allergy (Verified 05/18/17 12:21) Past Medical History - General Information source: Patient - Social History Smoking Status: Unknown if Ever Smoked Frequency of alcohol use: None Family History: DM, Hypertension, Other - [place] Patient has suicidal ideation: No Patient has homicidal ideation: No - Past Medical History Cardiac Medical History: Reports: Hx Hypertension Pulmonary Medical History: Reports: Hx Bronchitis Endocrine Medical History: Reports: Hx Diabetes Mellitus Type 2 Renal/ Medical History: Denies: Hx Peritoneal Dialysis Psychiatric Medical History: Reports: Hx Bipolar Disorder, Hx Depression Past Surgical History: Reports: Hx Adenoidectomy, Hx Section - X4, Hx Cholecystectomy, Hx Tubal Ligation - Immunizations Hx Diphtheria, Pertussis, Tetanus Vaccination: Yes Review of Systems - Review of Systems Notes: REVIEW OF SYSTEMS: CONSTITUTIONAL: -fevers, -chills EENT: -eye pain, -difficulty swallowing, -nasal congestion CARDIOVASCULAR: -chest pain, -syncope. RESPIRATORY: -cough, -SOB GASTROINTESTINAL: +LLQ abdominal pain, -nausea, -vomiting, -diarrhea GENITOURINARY: -dysuria, -hematuria MUSCULOSKELETAL: -back pain, -neck pain SKIN: -rash or skin lesions. HEMATOLOGIC: -easy bruising or bleeding. LYMPHATIC: -swollen, enlarged glands. NEUROLOGICAL: -altered mental status or loss of consciousness, -headache, - neurologic symptoms PSYCHIATRIC: -anxiety, -depression. ALL OTHER SYSTEMS REVIEWED AND NEGATIVE. Physical Exam - Vital signs Vitals: Temp Pulse Resp BP Pulse Ox 98.1 F 104 H 19 116/83 98 01/25/18 01:33 01/25/18 01:33 01/25/18 01:33 01/25/18 01:33 01/25/18 01:33 - Notes Notes: PHYSICAL EXAMINATION: GENERAL: Well-appearing, well-nourished and in no acute distress. HEAD: Atraumatic, normocephalic. EYES: Pupils equal round and reactive to light, extraocular movements intact, sclera anicteric, conjunctiva are normal. ENT: nares patent, oropharynx clear without exudates. Moist mucous membranes. NECK: Normal range of motion, supple without lymphadenopathy LUNGS: Breath sounds clear to auscultation bilaterally and equal. No wheezes rales or rhonchi. HEART: Regular rate and rhythm without murmurs ABDOMEN: Soft, mild LLQ tenderness, normoactive bowel sounds. No guarding, no rebound. No masses appreciated. EXTREMITIES: Normal range of motion, no pitting or edema. No cyanosis. NEUROLOGICAL: Cranial nerves grossly intact. Normal speech, normal gait. Normal sensory and motor exams. PSYCH: Normal mood, normal affect. SKIN: Warm, Dry, normal turgor, no rashes or lesions noted. Course - Re-evaluation Re-evalutation: Patient appears well. Her CT scan shows evidence of diverticulitis. Pain is under control and there is no evidence of abscess formation. Will start her on Cipro and Flagyl with follow-up at the GI doctor. Given very strict return precautions and she understands. - Vital Signs Vital signs: Temp Pulse Resp BP Pulse Ox 98.1 F 104 H 19 116/83 98 01/25/18 01:33 01/25/18 01:33 01/25/18 01:33 01/25/18 01:33 01/25/18 01:33 - Laboratory Result Diagrams: 01/25/18 03:21 01/25/18 03:21 Laboratory results interpreted by me: 01/25/18 03:21 WBC 12.2 H - Diagnostic Test Radiology reviewed: Image reviewed, Reports reviewed Radiology results interpreted by me: CT A/P: 1. Acute diverticulitis of the distal descending colon. No pericolic abscess formation. 2. Small amount of free fluid. 3. Hepatic steatosis and hepatomegaly. Discharge - Discharge Clinical Impression: Acute diverticulitis Condition: Stable Disposition: HOME, SELF-CARE Additional Instructions: Diverticulitis You have been diagnosed as having diverticulitis. This is an inflammation of a small pouch attached to the colon, called a diverticulum. Many of these small pouches can form on the colon as you get older. They are often caused by constipation. When inflamed or infected, symptoms arise -- usually abdominal pain, constipation or diarrhea, fever, and blood in the stool. Severe diverticulitis may require hospitalization. More mild cases are usually treated with antibiotics and clear liquid diet. As you improve, a diet low in residue (one which forms little stool) is prescribed. When you are better, you should eat a high-fiber diet. Stool softeners ( like Metamucil) are usually recommended. Call the doctor or go to the hospital if there is increasing pain, vomiting , high fever, large amounts of blood passed, or if bowel movements cease. Prescriptions: Ciprofloxacin HCl [Cipro 500 mg Tablet] 500 mg PO BID #20 tablet Metronidazole [Flagyl 500 mg Tablet] 500 mg PO Q8 #21 tablet Referrals: MICHELLE MCDANIEL MD [Primary Care Provider] - Follow up as needed
[2018-01-25] MEDS ORDERED: METRONIDAZOLE 500 MG TABLET PO ONE (04:05)
[2018-01-25] MEDS ORDERED: CIPROFLOXACIN HCL 500 MG TABLET PO ONE (04:05)
[2018-01-25 04:39] LABS: ALANINE AMINOTRANSFERASE 21 U/L (9-52); ALBUMIN 3.7 g/dL (3.5-5.0); ALKALINE PHOSPHATASE 84 U/L (38-126); ANION GAP 12 (5-19); ASPARTATE AMINO TRANSFERASE 16 U/L (14-36); BILIRUBIN,DIRECT 0.1 mg/dL (0.0-0.4); BILIRUBIN,TOTAL 0.1 mg/dL (0.2-1.3); BLOOD UREA NITROGEN 10 mg/dL (7-20); CALCIUM 9.4 mg/dL (8.4-10.2); CARBON DIOXIDE 26 mmol/L (22-30); CHLORIDE 103 mmol/L (98-107); GLUCOSE 105 mg/dL (75-110); LIPASE 67.9 U/L (23-300); POTASSIUM 4.5 mmol/L (3.6-5.0); SODIUM 140.5 mmol/L (137-145)
[2018-01-25 05:12] VITALS: BP 121/76
--- NOTE | 2018-01-25 15:34 | EKG REPORT ---
SEVERITY:- NORMAL ECG - SINUS RHYTHM : Confirmed by: Trini Cutler MD 25-Jan-2018 15:33:55
== END 2018-01-25 05:05 | disposition home or self-care (01) ==
LOC: ER 00:39
DX: K57.32 Diverticulitis of large intestine without perforation or abscess without bleeding (principal); R10.32 Left lower quadrant pain; K76.0 Fatty (change of) liver, not elsewhere classified; R39.89 Other symptoms and signs involving the genitourinary system; I10 Essential (primary) hypertension; E11.9 Type 2 diabetes mellitus without complications; Z90.49 Acquired absence of other specified parts of digestive tract; Z91.041 Radiographic dye allergy status; Z88.0 Allergy status to penicillin; Z91.013 Allergy to seafood; Z98.51 Tubal ligation status
CPT/HCPCS: 93005; 99284; 96360; 36415; 83690; 85025; 80053; 81001; 76380; 93010; A9270 ×2; J7030

== ENCOUNTER 2018-02-01 08:40 | Emergency (ER) | payer MEDICARE, MEDICAID ==
--- NOTE | 2018-02-01 09:16 | ER Document Report ---
ED GI/ - General Chief Complaint: Abdominal Pain Stated Complaint: ABDOMINAL PAIN/RECTAL BLEEDING Time Seen by Provider: 02/01/18 09:15 Mode of Arrival: Ambulatory Information source: Patient Notes: 42 obese female diagnosed with diverticulitis 7 days ago in the emergency department was started on Flagyl and Cipro. Her left lower quadrant abdominal pain is gotten worse and she now has rectal bleeding for 3 days when she sits on the toilet to have a bowel movement. No vaginal bleeding.. She has a history of anemia that she had to take iron for in the past. She does feel a little dizzy. TRAVEL OUTSIDE OF THE [place] IN LAST 30 DAYS: No - Related Data Allergies/Adverse Reactions: Iodinated Contrast- Oral and IV Dye [IV Dye, Iodine Containing] Allergy ( Verified 02/01/18 08:44) iodine [Iodine] Allergy (Verified 02/01/18 08:44) Penicillins Allergy (Verified 02/01/18 08:44) Shellfish * [Shellfish] Allergy (Verified 02/01/18 08:44) Past Medical History - General Information source: Patient - Social History Smoking Status: Never Smoker Frequency of alcohol use: None Drug Abuse: None Family History: CAD, DM, Hypertension, Other - [place] - Past Medical History Cardiac Medical History: Reports: Hx Hypertension Pulmonary Medical History: Reports: Hx Bronchitis Endocrine Medical History: Reports: Hx Diabetes Mellitus Type 2 Renal/ Medical History: Denies: Hx Peritoneal Dialysis Psychiatric Medical History: Reports: Hx Bipolar Disorder, Hx Depression Past Surgical History: Reports: Hx Adenoidectomy, Hx Section - X4, Hx Cholecystectomy, Hx Tubal Ligation - Immunizations Hx Diphtheria, Pertussis, Tetanus Vaccination: Yes Review of Systems - Review of Systems Constitutional: No symptoms reported EENT: No symptoms reported Cardiovascular: No symptoms reported Respiratory: No symptoms reported Gastrointestinal: See HPI Genitourinary: No symptoms reported Female Genitourinary: No symptoms reported Musculoskeletal: No symptoms reported Skin: No symptoms reported Hematologic/Lymphatic: No symptoms reported Neurological/Psychological: No symptoms reported Physical Exam - Vital signs Vitals: Temp Pulse Resp BP Pulse Ox 98.6 F 111 H 16 118/49 L 99 02/01/18 08:45 02/01/18 08:45 02/01/18 08:45 02/01/18 08:45 02/01/18 08:45 Interpretation: Normal - General General appearance: Appears well, Alert, Anxious Notes: obese - HEENT Head: Normocephalic, Atraumatic Eyes: Normal Conjunctiva: Normal Pupils: PERRL Mucous membranes: Normal Pharynx: Normal Neck: Supple. No: Lymphadenopathy - Respiratory Respiratory status: No respiratory distress Chest status: Nontender Breath sounds: Normal Chest palpation: Normal - Cardiovascular Rhythm: Regular Heart sounds: Normal auscultation Murmur: No - Abdominal Inspection: Normal Distension: No distension Bowel sounds: Normal Tenderness: Tender - LLQ Organomegaly: No organomegaly - Rectal Tenderness: No Stool: Bloody - Back Back: Normal, Nontender - Extremities General upper extremity: Normal inspection, Nontender, Normal color, Normal ROM , Normal temperature General lower extremity: Normal inspection, Nontender, Normal color, Normal ROM , Normal temperature, Normal weight bearing. No: Gerald's sign - Neurological Neuro grossly intact: Yes Cognition: Normal Orientation: AAOx4 Anders Coma Scale Eye Opening: Spontaneous Anders Coma Scale Verbal: Oriented Anders Coma Scale Motor: Obeys Commands Anders Coma Scale Total: 15 Speech: Normal Motor strength normal: LUE, RUE, LLE, RLE Sensory: Normal - Psychological Associated symptoms: Normal affect, Normal mood - Skin Skin Temperature: Warm Skin Moisture: Dry Skin Color: Normal Course - Re-evaluation Re-evalutation: 02/01/18 10:23 Dr. Gasca a general surgeon will be willing to workup this GI bleed here at [facility] if I get a hospitalist admission. Her primary care doctor is Dr. Mel Rios [facility]. 2 units of packed red cells have been ordered since her hemoglobin is 7.8. 02/01/18 10:51 Dr. REYNOSO only will admit the patient she wants me to call Nesha Lemus [employer] for the admission. Nesha will admit to [facility]. - Vital Signs Vital signs: Temp Pulse Resp BP Pulse Ox 98.3 F 102 H 17 111/50 L 100 02/01/18 12:40 02/01/18 12:40 02/01/18 12:42 02/01/18 12:42 02/01/18 12:42 - Laboratory Result Diagrams: 02/01/18 09:22 02/01/18 09:22 Laboratory results interpreted by me: 02/01/18 02/01/1802/01/18 09:22 09:22 09:37 WBC 15.8 H RBC 2.58 L Hgb 7.8 L Hct 23.0 L RDW 14.1 H Absolute Neutrophils 9.0 H Absolute Lymphocytes 5.7 H BUN 6 L Glucose 111 H Total Protein 6.2 L Albumin 3.4 L Crossmatch See Detail Discharge - Discharge Clinical Impression: Lower GI bleed, Diverticulitis Condition: Serious Disposition: ADMITTED INPATIENT Admitting Provider: Hospitalist Unit Admitted: IMCU Referrals: MICHELLE MCDANIEL MD [Primary Care Provider] - Follow up as needed
[2018-02-01] MEDS ORDERED: NORMAL SALINE 1000 ML 1,000 ML IV ONE ×3 (09:31→12:30)
[2018-02-01 10:01] LABS: ABSOLUTE BASOPHILS # (AUTO) 0.1 10^3/uL (0.0-0.2); ABSOLUTE EOSINOPHILS # (AUTO) 0.1 10^3/uL (0.0-0.6); ABSOLUTE LYMPHOCYTES (AUTO) 5.7 10^3/uL (0.5-4.7); BASOPHILS % (AUTO) 0.6 % (0-2); EOSINOPHILS % (AUTO) 0.7 % (0-6); LYMPHOCYTES % (AUTO) 35.8 % (13-45); MEAN CORPUSCULAR HGB CONC 33.7 g/dL (32.0-36.0); MEAN CORPUSCULAR VOLUME 89 fl (80-97); MONOCYTES % (AUTO) 6.4 % (3-13); PLATELET COUNT 375 10^3/uL (150-450); RED BLOOD COUNT 2.58 10^6/uL (3.72-5.28); RED CELL DISTRIBUTION WIDTH 14.1 % (11.5-14.0); SEGMENTED NEUTROPHILS % (AUTO) 56.5 % (42-78); TOTAL CELLS COUNTED % (AUTO) 100 %; WHITE BLOOD COUNT 15.8 10^3/uL (4.0-10.5)
[2018-02-01] MEDS ORDERED: MORPHINE SULFATE 10 MG/ML INJ IV ONE (10:03)
[2018-02-01 10:04] LABS: ALANINE AMINOTRANSFERASE 32 U/L (9-52); ALBUMIN 3.4 g/dL (3.5-5.0); ALKALINE PHOSPHATASE 48 U/L (38-126); ANION GAP 11 (5-19); ASPARTATE AMINO TRANSFERASE 32 U/L (14-36); BILIRUBIN,DIRECT 0.3 mg/dL (0.0-0.4); BILIRUBIN,TOTAL 0.3 mg/dL (0.2-1.3); BLOOD UREA NITROGEN 6 mg/dL (7-20); CALCIUM 9.2 mg/dL (8.4-10.2); CARBON DIOXIDE 25 mmol/L (22-30); CHLORIDE 103 mmol/L (98-107); GLUCOSE 111 mg/dL (75-110); POTASSIUM 4.6 mmol/L (3.6-5.0); SODIUM 138.6 mmol/L (137-145); TOTAL PROTEIN 6.2 g/dL (6.3-8.2)
[2018-02-01 10:08] LABS: HEMOGLOBIN 7.8 g/dL (12.0-15.5)
[2018-02-01] MEDS ORDERED: NORMAL SALINE 250 ML IV PRN ×2 (10:11)
[2018-02-01] MEDS ORDERED: ONDANSETRON 4 MG TAB.RAPDIS PO ONE (10:20)
[2018-02-01 10:25] LABS: INTERNATIONAL RATION (INR) 1.03; PROTHROMBIN TIME 14.1 SEC (11.4-15.4)
[2018-02-01 10:26] LABS: PARTIAL THROMBOPLASTIN TIME 29.3 SEC (23.5-35.8)
--- NOTE | 2018-02-01 10:35 | RADIOLOGY REPORT (SQ) ---
EXAM DESCRIPTION: ACUTE ABDOMEN SERIES COMPLETED DATE/TIME: 02/01/2018 10:12 am REASON FOR STUDY: worsening LLQ pain hx divertic COMPARISON: November 2016 NUMBER OF VIEWS: Three views. TECHNIQUE: Frontal chest, supine abdomen and upright/decubitus abdomen radiographic images acquired. LIMITATIONS: Study is limited due to the patient's body habitus. FINDINGS: CHEST: Lungs clear of infiltrates. FREE AIR: None. No abnormal gas collections. BOWEL GAS PATTERN: Nonobstructive pattern. No dilated loops or air fluid levels. CALCIFICATIONS: No suspicious calcifications. HARDWARE: None in the abdomen. SOFT TISSUES: No gross mass or suggestion of organomegaly. BONES: No acute fracture. No worrisome bone lesions. OTHER: No other significant finding. IMPRESSION: NO RADIOGRAPHIC EVIDENCE FOR ACUTE ABDOMINAL DISEASE. TECHNICAL DOCUMENTATION: JOB ID: [id number] [employer]- All Rights Reserved Reading location - IP/workstation name: [email or web address]
[2018-02-01] MEDS ORDERED: PANTOPRAZOLE SODIUM 40 MG VIAL IV ONE (11:38)
[2018-02-01] MEDS ORDERED: NORMAL SALINE 100 ML with PANTOPRAZOLE SODIUM 80 MG IV PRN ×2 (11:39)
--- NOTE | 2018-02-01 11:53 | PDOC TRANSFER SUMMARY ---
General Admission Date/PCP: 02/01/18 11:17 MICHELLE MCDANIEL MD Admission Date: 02/01/18 Transfer Date: 02/01/18 Accepting Facility: [facility] Accepting Physician: Dr. Chante Cruz Resuscitation Status: Full Code - Transfer Medications Home Medications: Lurasidone HCl [Latuda] 10 mg PO DAILY 09/13/14 Metformin HCl [Glucophage] 500 mg PO DAILY 09/13/14 Transfer Medications: Current Medications Sodium Chloride (Nacl 0.9% 250 Ml Iv Soln) 250 mls @ 30 mls/hr IV .DURING TRANSFUSION PRN PRN Reason: THIS MED IS NOT "PRN" Stop: 02/02/18 10:10 Sodium Chloride (Nacl 0.9% 250 Ml Iv Soln) 250 mls @ 0 mls/hr IV CONTINUOUS PRN ; As Directed PRN Reason: AFTER EACH UNIT Stop: 02/02/18 10:10 - Allergies Allergies/Adverse Reactions: Iodinated Contrast- Oral and IV Dye [IV Dye, Iodine Containing] Allergy ( Verified 02/01/18 08:44) iodine [Iodine] Allergy (Verified 02/01/18 08:44) Penicillins Allergy (Verified 02/01/18 08:44) Shellfish * [Shellfish] Allergy (Verified 02/01/18 08:44) Hospital Course Hospital Course: 42 y.o. F with PMH DMII, Bipolar, HTN, HLD presented to the ED with LLQ pain and dark bloody stool x 3d. The patient describes her pain as 'burning' and constant, states it is so severe that it keeps her up at night. The patient states she took 1 Percocet last night for pain, but it offered no relief. She came to the ED today because her LLQ was unbearable and the amount of blood in her stool has been increasing. Of note, on 01/25/2018 the patient presented to the ED with abdominal pain. CT Abd (non-contrast) revealed diverticulitis in the distal descending colon. She was sent home with Cipro and Flagyl. Upon assessment today, the patient is A&O x 3. She endorses L sided abdominal pain. +TTP to LLQ. +BS. While at [facility] ED, the patient had 1 episode of bloody stool. Her BP is very labile. During my interview with the patient, her SBP dropped from 97 -> 88 -> 72. The patient has already received 1L IVF bolus, and 2U PRBC have been ordered. Plan to continue fluid resuscitation unless her MAP drops below 60, at which time we will initiate vasopressors. [facility] MICU attending, Dr. Miller, was consulted regarding transfer to their medical facility given her unstable presentation and our lack of GI coverage. He has graciously accepted. Given the patient's unstable VS, plan to send by air transport to tertiary facility. Physical Exam Vital Signs: Temp Pulse Resp BP Pulse Ox 98.6 F 111 H 23 H 94/61 L 99 02/01/18 08:45 02/01/18 08:45 02/01/18 10:43 02/01/18 10:43 02/01/18 10:43 General appearance: PRESENT: no acute distress Head exam: PRESENT: atraumatic Eye exam: PRESENT: conjunctiva pink, PERRLA Mouth exam: PRESENT: moist Neck exam: PRESENT: full ROM Respiratory exam: PRESENT: clear to auscultation chloe, unlabored Cardiovascular exam: PRESENT: tachycardia Pulses: PRESENT: normal radial pulses, normal dorsalis pedis pul GI/Abdominal exam: PRESENT: normal bowel sounds, soft, tenderness - LLQ Rectal exam: PRESENT: heme (+) stool Extremities exam: PRESENT: full ROM Musculoskeletal exam: PRESENT: full ROM Neurological exam: PRESENT: alert, awake, oriented to person, oriented to place , oriented to time Psychiatric exam: PRESENT: anxious, appropriate affect Skin exam: PRESENT: dry, intact, normal color Results Impressions: Acute Abdomen Series 02/01/18 09:30 IMPRESSION: NO RADIOGRAPHIC EVIDENCE FOR ACUTE ABDOMINAL DISEASE. Status: Imported from PACS Plan Discharge Plan: Transfer to [facility] MICU. Time Spent: Less than 30 Minutes
[2018-02-01] MEDS ORDERED: ALPRAZOLAM 0.5 MG TABLET PO ONE (11:54)
[2018-02-01] MEDS ORDERED: FENTANYL CITRATE INJ/PF 100 MCG/2 ML AMPUL IV PRN (11:55)
[2018-02-01] MEDS ORDERED: PROMETHAZINE HCL INJ 25 MG/1 ML VIAL IV PRN (11:56)
[2018-02-01] MEDS ORDERED: PANTOPRAZOLE SODIUM 80 MG in NORMAL SALINE 100 ML IV ONE (12:30)
[2018-02-01 13:37] VITALS: BP 101/71
== END 2018-02-01 13:35 | disposition short-term general hospital (02) ==
LOC: ER 08:40 → UNDOADMIN 11:17 → EH 11:17 → ER 13:35
DX: R10.9 Unspecified abdominal pain (principal); K57.92 Diverticulitis of intestine, part unspecified, without perforation or abscess without bleeding; K92.2 Gastrointestinal hemorrhage, unspecified; I10 Essential (primary) hypertension; E11.9 Type 2 diabetes mellitus without complications; Z90.49 Acquired absence of other specified parts of digestive tract; Z98.51 Tubal ligation status
CPT/HCPCS: 99285; 96361; 96374; 86900; 86901; 36415; 36430; 86850; 85025; 85610; 85730; 80053; 86920; 74022; P9016; A9270 ×2; J3010; J2270; C9113; J7030; J7050; S0119; S0164

== ENCOUNTER 2018-04-27 03:06 | Emergency (ER) | payer MEDICARE, MEDICAID ==
[2018-04-27] MEDS ORDERED: KETOROLAC TROMETHAMINE 60 MG/2 ML SDV IM ONE (05:03)
[2018-04-27] MEDS ORDERED: DEXAMETHASONE SOD PHOS INJ 10 MG/1 ML VIAL IM ONE (05:04)
--- NOTE | 2018-04-27 05:07 | ER Document Report ---
HPI - HPI Pain Level: 5 Context: Patient is a 43-year-old female that comes to the emergency department for chief complaint of right leg, thigh pain, pain radiates to the right knee. She states that she has this pain all the time intermittently, she was already evaluated for this with imaging, she states that she was helping move large items over the last few days and she thinks she irritated it. She does not have a specific diagnosis for pain. Pain does not radiate down the back, she denies any numbness, incontinence, fever, IV drug abuse. She denies any impact injury. - CONSTITUTIONAL Constitutional: DENIES: Fever, Chills - REPRODUCTIVE Reproductive: DENIES: : - MUSCULOSKELETAL Musculoskeletal: REPORTS: Extremity pain Past Medical History - General Information source: Patient - Social History Smoking Status: Never Smoker Chew tobacco use (# tins/day): No Frequency of alcohol use: Occasional Drug Abuse: None Lives with: Family Family History: CAD, DM, Hypertension, Other - [place] Patient has suicidal ideation: No Patient has homicidal ideation: No - Past Medical History Cardiac Medical History: Reports: Hx Hypertension Pulmonary Medical History: Reports: Hx Bronchitis Endocrine Medical History: Reports: Hx Diabetes Mellitus Type 2 Renal/ Medical History: Denies: Hx Peritoneal Dialysis Psychiatric Medical History: Reports: Hx Bipolar Disorder, Hx Depression Past Surgical History: Reports: Hx Adenoidectomy, Hx Section - X4, Hx Cholecystectomy, Hx Tubal Ligation - Immunizations Hx Diphtheria, Pertussis, Tetanus Vaccination: Yes Vertical Provider Document - CONSTITUTIONAL General Appearance: WD/WN, No Apparent Distress, Obese - INFECTION CONTROL TRAVEL OUTSIDE OF THE [place] IN LAST 30 DAYS: No - HEENT HEENT: Atraumatic, Normocephalic - NECK Neck: Normal Inspection - RESPIRATORY Respiratory: Breath Sounds Normal, No Respiratory Distress - CARDIOVASCULAR Cardiovascular: Regular Rate, Regular Rhythm - GI/ABDOMEN Gastrointestinal: Abdomen Soft, Abdomen Non-Tender - BACK Back: Normal Inspection - Non-tender back generally on palpation. No midline tenderness, no saddle anesthesia, no signs of trauma. Normal upper and lower extremity range of motion, normal strength, normal distal neurovascular exam. - MUSCULOSKELETAL/EXTREMETIES Musculoskeletal/Extremeties: Tender - Tenderness over the right femoral bursa region, no erythema, abnormal warmth, swelling. Remaining lower extremity exam is actually unremarkable. Normal distal neurovascular exam. - NEURO Level of Consciousness: Awake, Alert, Appropriate - DERM Integumentary: Warm, Dry, No Rash Course - Re-evaluation Re-evalutation: No neurological deficits on exam or reported. Patient reports this pain is not new but it is flared up from her usual. Patient has specific tenderness over the right femoral bursa area. No inflammation, erythema, abnormal heat, or other abnormality suggesting infection, no severe tenderness suggesting compartment syndrome or myositis. Patient is actually quite well-appearing, smiling, talkative. Unremarkable vital signs. No fever. Discussed with patient. Given dexamethasone, Toradol, discussed follow-up with orthopedics for treatment of bursitis, discussed return precautions. Patient states satisfaction and agreement. - Vital Signs Vital signs: Temp Pulse Resp BP Pulse Ox 98.1 F 96 18 135/79 H 98 04/27/18 03:17 04/27/18 03:17 04/27/18 03:17 04/27/18 03:17 04/27/18 03:17 Discharge - Discharge Clinical Impression: Right leg pain Condition: Stable Disposition: HOME, SELF-CARE Additional Instructions: Your examination is suggestive of bursitis at the femoral bursa. I suspect this is the cause of your pain. You have been treated for this, follow up with Orthopedics for additional management, follow up with your primary care provider as well. Return if you worsen including fever, developing redness, severe pain, numbness , inability to urinate, accidentally having bowel movements, or any other concerning or worsening symptoms. Referrals: YAJAIRA FERNANDEZ MD [ACTIVE STAFF] - Follow up in 1 week
[2018-04-27 05:59] VITALS: BP 138/95
== END 2018-04-27 06:02 | disposition home or self-care (01) ==
LOC: ER 03:06
DX: M79.651 Pain in right thigh (principal); E11.9 Type 2 diabetes mellitus without complications; I10 Essential (primary) hypertension
CPT/HCPCS: 99283; 96372; J1885; J1100

== ENCOUNTER 2018-05-02 06:15 | Emergency (ER) | payer MEDICARE, MEDICAID ==
[2018-05-02] MEDS ORDERED: KETOROLAC TROMETHAMINE 60 MG/2 ML SDV IM ONE (08:25)
--- NOTE | 2018-05-02 09:02 | ER Document Report ---
ED Extremity Problem, Lower - General Chief Complaint: Knee Pain Stated Complaint: KNEE/HIP PAIN Time Seen by Provider: 05/02/18 08:15 Information source: Patient, [facility] Records Notes: Patient is a 43-year-old morbidly obese female returns emergency room complaining of right knee pain right hip pain left shoulder pain. Patient was seen here a few nights ago believe on the was given steroid shots and sent home. Patient is back today saying she needs narcotic medication for pain. States she was sent to pain management and for some reason she was dropped and she is not followed up with any orthopedic for this problem at all. Patient is ambulatory but with difficulty. TRAVEL OUTSIDE OF THE [place] IN LAST 30 DAYS: No - HPI Patient complains to provider of: Pain, Swelling. No: Injury Location: Hip, Knee Occurred: Last week Where: Other - Unknown Onset/Duration: Gradual, Persistent, Worse Quality of pain: Stabbing Severity: Severe Pain Level: 4 Context: Other - Unknown Recent injury: No Exacerbated by: Movement, Walking Relieved by: Nothing - Related Data Allergies/Adverse Reactions: Iodinated Contrast- Oral and IV Dye [IV Dye, Iodine Containing] Allergy ( Verified 05/02/18 07:20) iodine [Iodine] Allergy (Verified 05/02/18 07:20) Penicillins Allergy (Verified 05/02/18 07:20) Shellfish * [Shellfish] Allergy (Verified 05/02/18 07:20) Past Medical History - General Information source: Patient - Social History Smoking Status: Never Smoker Cigarette use (# per day): No Chew tobacco use (# tins/day): No Smoking Education Provided: No Frequency of alcohol use: None Drug Abuse: None Lives with: Family Family History: Reviewed & Not Pertinent, CAD, DM, Hypertension, Other - [place] Patient has suicidal ideation: No Patient has homicidal ideation: No - Past Medical History Cardiac Medical History: Reports: Hx Hypertension Pulmonary Medical History: Reports: Hx Bronchitis Endocrine Medical History: Reports: Hx Diabetes Mellitus Type 2 Renal/ Medical History: Denies: Hx Peritoneal Dialysis Psychiatric Medical History: Reports: Hx Bipolar Disorder, Hx Depression Past Surgical History: Reports: Hx Adenoidectomy, Hx Section - X4, Hx Cholecystectomy, Hx Tubal Ligation - Immunizations Hx Diphtheria, Pertussis, Tetanus Vaccination: Yes Review of Systems - Review of Systems Constitutional: No symptoms reported EENT: No symptoms reported Cardiovascular: No symptoms reported Respiratory: No symptoms reported Gastrointestinal: No symptoms reported Genitourinary: No symptoms reported Female Genitourinary: No symptoms reported Musculoskeletal: Joint pain, Joint swelling, Muscle pain, Muscle stiffness. denies: Back pain Skin: No symptoms reported Hematologic/Lymphatic: No symptoms reported Neurological/Psychological: No symptoms reported -: Yes All other systems reviewed and negative Physical Exam - Vital signs Vitals: Temp Pulse Resp BP Pulse Ox 98.5 F 81 18 124/83 98 05/02/18 06:24 05/02/18 06:24 05/02/18 06:24 05/02/18 06:24 05/02/18 06:24 Interpretation: Normal - Notes Notes: Demanding 43-year-old female. Morbidly obese. - General General appearance: Alert - HEENT Head: Normocephalic, Atraumatic Eyes: Normal - Respiratory Respiratory status: No respiratory distress Chest status: Nontender Breath sounds: Normal. No: Rales, Rhonchi, Stridor, Wheezing Chest palpation: Normal - Cardiovascular Rhythm: Regular Heart sounds: Normal auscultation Murmur: No - Extremities General upper extremity: Normal inspection, Normal ROM General lower extremity: Tender, Normal temperature, Normal weight bearing. No : Normal strength, Gerald's sign Knee: Tender, Joint effusion, Laxity with valgus stress, Laxity with varus stress, Pain with ROM, Patellar tendon intact, Other - Examination patient's right knee shows minimal amount of joint effusion. There is point tenderness on the right lateral side of the knee to palpation. Mild laxity noted. Anterior drawer is negative. Good distal pulses in the dorsalis pedal area good cap refill in the nailbeds of the toes. Patient has limited flexion can go total extension.. No: Drawer's test instability, Ecchymosis, Instability, Laceration Calf: Normal, Nontender Ankle: Normal, Nontender - Neurological Neuro grossly intact: Yes Cognition: Normal Orientation: AAOx4 Anders Coma Scale Eye Opening: Spontaneous Anders Coma Scale Verbal: Oriented [place] Coma Scale Motor: Obeys Commands [place] Coma Scale Total: 15 Speech: Normal - Skin Skin Temperature: Warm Skin Moisture: Dry Skin Color: Normal Course - Re-evaluation Re-evalutation: 05/02/18 09:04 Patient seems to fluctuate in her mood. She is almost manic at one point and at another point she gets depressed. She is very demanding wanting narcotic medication for her knee. I have ordered a knee immobilizer and crutches for her she refuses those will only take an Cong wrap. Also we will Cong wrap her knee I will put her on some nabumetone and give her referral to orthopedist. - Vital Signs Vital signs: Temp Pulse Resp BP Pulse Ox 98.5 F 81 18 124/83 98 05/02/18 06:24 05/02/18 06:24 05/02/18 06:24 05/02/18 06:24 05/02/18 06:24 Procedures - Immobilization Right Lateral Knee Immobilizer type: Cong wrap Performed by: JAYESH Post-Proc Neuro Vasc Exam: Normal Alignment checked and good: Yes Discharge - Discharge Clinical Impression: Bursitis of right knee Qualifiers: Knee bursitis location: infrapatellar bursitis Qualified Code(s): M70.51 - Other bursitis of knee, right knee Disposition: HOME, SELF-CARE Instructions: Ice & Elevation ([facility]), Suspected Internal Knee Injury ([facility]), Sprained Knee ([facility]) Additional Instructions: Use the Cong wrap only when you are up and walking around. Do not use it when sleep. Medication is for pain and inflammation take as directed. Highly suggest you follow-up with your primary care for referral to an orthopedist. He also probably need to return to them about your pain management clinic to get reestablished. He have any concerns or problems return to ER Prescriptions: Nabumetone 750 mg PO BID PRN #20 tab PRN Reason: Forms: Elevated Blood Pressure
[2018-05-02 09:22] VITALS: BP 122/85
== END 2018-05-02 09:21 | disposition home or self-care (01) ==
LOC: ER 06:15
DX: M70.51 Other bursitis of knee, right knee (principal); M25.561 Pain in right knee; M25.551 Pain in right hip; E66.01 Morbid (severe) obesity due to excess calories; Z68.42 Body mass index [BMI] 45.0-49.9, adult; I10 Essential (primary) hypertension; E11.9 Type 2 diabetes mellitus without complications; Z91.041 Radiographic dye allergy status; Z88.0 Allergy status to penicillin; Z91.013 Allergy to seafood
CPT/HCPCS: 99283; 96372; J1885

== ENCOUNTER 2018-05-06 21:55 | Emergency (ER) | payer MEDICARE, MEDICAID ==
--- NOTE | 2018-05-07 00:34 | ER Document Report ---
ED General - General Chief Complaint: Psych Problem Stated Complaint: SHORTNESS OF BREATH Time Seen by Provider: 05/07/18 00:17 Notes: 43-year-old female with long-standing psych disease presents from senior living for complaints of "bronchitis" per EMS. The patient refuses to give a history. When I examined her she is lying in the bed sleeping. TRAVEL OUTSIDE OF THE [place] IN LAST 30 DAYS: No - Related Data Allergies/Adverse Reactions: Iodinated Contrast- Oral and IV Dye [IV Dye, Iodine Containing] Allergy ( Verified 05/02/18 07:20) iodine [Iodine] Allergy (Verified 05/02/18 07:20) Penicillins Allergy (Verified 05/02/18 07:20) Shellfish * [Shellfish] Allergy (Verified 05/02/18 07:20) Past Medical History - General Information source: Emergency Med Personnel - Social History Smoking Status: Unknown if Ever Smoked Family History: Reviewed & Not Pertinent, CAD, DM, Hypertension, Other - [place] - Past Medical History Cardiac Medical History: Reports: Hx Hypertension Pulmonary Medical History: Reports: Hx Bronchitis Endocrine Medical History: Reports: Hx Diabetes Mellitus Type 2 Renal/ Medical History: Denies: Hx Peritoneal Dialysis Psychiatric Medical History: Reports: Hx Bipolar Disorder, Hx Depression Past Surgical History: Reports: Hx Adenoidectomy, Hx Section - X4, Hx Cholecystectomy, Hx Tubal Ligation - Immunizations Hx Diphtheria, Pertussis, Tetanus Vaccination: Yes Review of Systems - Review of Systems Notes: REVIEW OF SYSTEMS Able to obtain: Patient compliance PHYSICAL EXAMINATION General: No acute distress, well-nourished Head: Atraumatic, normocephalic ENT: Mouth normal, oropharynx moist, no exudates or tonsillar enlargement Eyes: Conjunctiva normal, pupils equal, lids normal Neck: No JVD, supple, no guarding CVS: Normal rate, regular rhythm, no murmurs Resp: No resp distress, equal and normal breath sounds bilaterally GI: Nondistended, soft, no tenderness to palpation, no rebound or guarding Ext: No deformities, no edema, normal range of motion in upper and lower ext Back: No CVA or midline TTP Skin: No rash, warm Lymphatic: No lymphadeopathy noted Neuro: Awake, alert. Face symmetric. GCS 15. Physical Exam - Vital signs Vitals: Temp Pulse Resp BP Pulse Ox 99.9 F 120 H 18 160/88 H 97 05/06/18 21:57 05/06/18 21:57 05/06/18 21:57 05/06/18 21:57 05/06/18 21:57 Course - Re-evaluation Re-evalutation: 05/07/18 00:34 Patient presents from home a senior living for apparent cough and URI symptoms. Clinically though she is slightly tachycardic, she is not febrile and is normoxic. Her inability/unwillingness to provide history severely limits my evaluation but I do not believe there is any medical condition at this time. Chest x-ray will rule out pneumonia and active TB. 05/07/18 01:20 I have discussed with the patient there likely diagnosis, aftercare plan, follow -up plans and my usual and customary return precautions. They verbalized understanding of this. - Vital Signs Vital signs: Temp Pulse Resp BP Pulse Ox 99.9 F 120 H 18 160/88 H 97 05/06/18 21:57 05/06/18 21:57 05/06/18 21:57 05/06/18 21:57 05/06/18 21:57 - Diagnostic Test Radiology reviewed: Image reviewed, Reports reviewed Discharge - Discharge Clinical Impression: Cough Condition: Good Disposition: HOME, SELF-CARE Instructions: Upper Respiratory Illness ([facility]) Additional Instructions: No evidence of illness which would prevent senior living placement
--- NOTE | 2018-05-07 01:02 | RADIOLOGY REPORT (SQ) ---
PROCEDURE: CHEST X-RAY two views CLINICAL HISTORY: r/o PNA TB etc INDICATION: Same as above COMPARISON: 11/20/2017 TECHNIQUE: The study was done on 05/07/2018 at 1:17 AM PA and and lateral chest radiographs were obtained. FINDINGS: There is no paratracheal or perihilar lymphadenopathy. The patient is rotated to the right side There are no discrete airspace infiltrates, pneumothoraces or pleural effusions. The pulmonary vascularity is normal The cardiomediastinal silhouette is stable. IMPRESSION: There is no acute pleural-parenchymal process seen in the imaged lung mccoy. Place of interpretation: Teleradiology.
[2018-05-07 01:55] VITALS: BP 133/69
== END 2018-05-07 01:55 | disposition home or self-care (01) ==
LOC: ER 21:55
DX: R05 Cough (principal); R00.0 Tachycardia, unspecified; I10 Essential (primary) hypertension; E11.9 Type 2 diabetes mellitus without complications; Z91.041 Radiographic dye allergy status; Z88.0 Allergy status to penicillin; Z91.013 Allergy to seafood
CPT/HCPCS: 71046; 99284

== ENCOUNTER 2018-05-08 22:22 | Emergency (ER) | payer MEDICARE, MEDICAID | END 2018-05-08 22:25 | disposition left against medical advice (07) | LOC: ER 22:22 | DX: Z53.21 Procedure and treatment not carried out due to patient leaving prior to being seen by health care provider (principal) ==

== ENCOUNTER 2019-03-19 10:54 | Emergency (ER) | payer MEDICARE, MEDICAID ==
[2019-03-19] MEDS ORDERED: MECLIZINE HCL 25 MG TABLET PO ONE (11:13)
[2019-03-19] MEDS ORDERED: NORMAL SALINE 1000 ML 1,000 ML IV ONE (11:13)
[2019-03-19] MEDS ORDERED: ACETAMINOPHEN 325 MG TABLET PO ONE (11:14)
--- NOTE | 2019-03-19 11:18 | ER Document Report ---
ED Medical Screen (RME) - General Chief Complaint: Headache Stated Complaint: HEADACHE Time Seen by Provider: 03/19/19 11:05 Notes: Patient is a 43-year-old female who presents to the emergency department with a chief complaint of a headache and dizziness. Her symptoms started last night. She normally does not drink alcohol, but drinks some [place] Light and some carl last night. She states that she only had a few sips and since then sh e feels like the room is spinning. She denies any nausea or vomiting. She states that her headache is in the back of her head and it migrates forward. She has a history of bipolar disorder and tardive dyskinesia. She is currently on Nexium, Celebrex, and carbamazepine. According to the patient, her Celebrex was increased last week. Admits to tingling in fingers, but denies any new weakness or numbness. Exam: 5/5 strength in all extremities. No facial droop noted. I have greeted and performed a rapid initial assessment of this patient. A comprehensive ED assessment and evaluation of the patient, analysis of test results and completion of medical decision making process will be conducted by an additional ED providers. TRAVEL OUTSIDE OF THE [place] IN LAST 30 DAYS: No - Related Data Allergies/Adverse Reactions: Iodinated Contrast- Oral and IV Dye [IV Dye, Iodine Containing] Allergy (Verified 03/19/19 10:55) iodine [Iodine] Allergy (Verified 03/19/19 10:55) Penicillins Allergy (Verified 03/19/19 10:55) Shellfish * [Shellfish] Allergy (Verified 03/19/19 10:55) valbenazine [From Ingrezza] Allergy (Verified 03/19/19 10:55) Past Medical History - Social History Frequency of alcohol use: Rare Drug Abuse: None - Past Medical History Cardiac Medical History: Reports: Hx Hypertension Pulmonary Medical History: Reports: Hx Bronchitis Endocrine Medical History: Reports: Hx Diabetes Mellitus Type 2 Renal/ Medical History: Denies: Hx Peritoneal Dialysis Psychiatric Medical History: Reports: Hx Bipolar Disorder, Hx Depression Past Surgical History: Reports: Hx Adenoidectomy, Hx Section - X4, Hx Cholecystectomy, Hx Tubal Ligation - Immunizations Hx Diphtheria, Pertussis, Tetanus Vaccination: Yes Physical Exam - Vital signs Vitals: Temp Pulse Resp BP Pulse Ox 98.3 F 87 20 127/84 H 95 03/19/19 11:02 03/19/19 11:02 03/19/19 11:02 03/19/19 11:02 03/19/19 11:02 Course - Vital Signs Vital signs: Temp Pulse Resp BP Pulse Ox 98.3 F 87 20 127/84 H 95 03/19/19 11:02 03/19/19 11:02 03/19/19 11:02 03/19/19 11:02 03/19/19 11:02
[2019-03-19 12:28] LABS: ABSOLUTE LYMPHOCYTES (AUTO) 2.6 10^3/uL (0.5-4.7); ABSOLUTE MONOCYTES (AUTO) 0.4 10^3/uL (0.1-1.4); ABSOLUTE NEUT (AUTO) 3.8 10^3/uL (1.7-8.2); BASOPHILS % (AUTO) 0.4 % (0-2); HEMATOCRIT 39.1 % (36.0-47.0); HEMOGLOBIN 13.1 g/dL (12.0-15.5); LYMPHOCYTES % (AUTO) 38.4 % (13-45); MEAN CORPUSCULAR HEMOGLOBIN 29.2 pg (27.0-33.4); MEAN CORPUSCULAR HGB CONC 33.4 g/dL (32.0-36.0); MEAN CORPUSCULAR VOLUME 87 fl (80-97); MONOCYTES % (AUTO) 5.3 % (3-13); PLATELET COUNT 339 10^3/uL (150-450); RED BLOOD COUNT 4.47 10^6/uL (3.72-5.28); RED CELL DISTRIBUTION WIDTH 14.3 % (11.5-14.0); SEGMENTED NEUTROPHILS % (AUTO) 55.9 % (42-78); TOTAL CELLS COUNTED % (AUTO) 100 %; WHITE BLOOD COUNT 6.9 10^3/uL (4.0-10.5)
[2019-03-19] MEDS ORDERED: KETOROLAC TROMETHAMINE INJ/PF 30 MG/1 ML SDV IV ONE (12:35)
--- NOTE | 2019-03-19 12:38 | ER Document Report ---
ED General - General Chief Complaint: Headache Stated Complaint: HEADACHE Time Seen by Provider: 03/19/19 11:05 Primary Care Provider: TAVO CARBALLO MD [Primary Care Provider] - Follow up as needed TRAVEL OUTSIDE OF THE [place] IN LAST 30 DAYS: No - HPI Notes: Patient is a 43-year-old female who presents to the emergency department for evaluation of dizziness and headache. She states she recently had her carbamazepine dose increased. Last night she had a few "sips" of [place] Light carl. She states that there initially she developed vertigo, dizziness, and a headache. She states the vertigo is gotten better since being here. She has a headache that is frontal. It was not sudden in onset. It is not the worst headache of her life. She denies any visual changes. She is moving her arms and legs without difficulty. She states she just feels poorly, was not a ble to go to work today. - Related Data Allergies/Adverse Reactions: Iodinated Contrast- Oral and IV Dye [IV Dye, Iodine Containing] Allergy (Verified 03/19/19 10:55) iodine [Iodine] Allergy (Verified 03/19/19 10:55) Penicillins Allergy (Verified 03/19/19 10:55) Shellfish * [Shellfish] Allergy (Verified 03/19/19 10:55) valbenazine [From Ingrezza] Allergy (Verified 03/19/19 10:55) Past Medical History - General Information source: Patient - Social History Smoking Status: Never Smoker Frequency of alcohol use: Rare Drug Abuse: None Family History: Reviewed & Not Pertinent, CAD, DM, Hypertension, Other - [place] Patient has suicidal ideation: No Patient has homicidal ideation: No - Past Medical History Cardiac Medical History: Reports: Hx Hypertension Pulmonary Medical History: Reports: Hx Bronchitis Endocrine Medical History: Reports: Hx Diabetes Mellitus Type 2 Renal/ Medical History: Denies: Hx Peritoneal Dialysis Psychiatric Medical History: Reports: Hx Bipolar Disorder, Hx Depression Past Surgical History: Reports: Hx Adenoidectomy, Hx Section - X4, Hx Cholecystectomy, Hx Tubal Ligation - Immunizations Hx Diphtheria, Pertussis, Tetanus Vaccination: Yes Review of Systems - Review of Systems Constitutional: No symptoms reported EENT: See HPI Cardiovascular: No symptoms reported Respiratory: No symptoms reported Gastrointestinal: No symptoms reported Genitourinary: No symptoms reported Musculoskeletal: No symptoms reported Skin: No symptoms reported Neurological/Psychological: See HPI Physical Exam - Vital signs Vitals: Temp Pulse Resp BP Pulse Ox 98.3 F 87 20 127/84 H 95 03/19/19 11:02 03/19/19 11:02 03/19/19 11:02 03/19/19 11:02 03/19/19 11:02 - Notes Notes: Vital signs reviewed, please refer to chart. Head is normocephalic, atraumatic. Pupils equal round, reactive to light. Neck is supple without meningismus. Heart is regular rate and rhythm. Lungs are clear to auscultation bilaterally. Abdomen is soft, nontender, normoactive bowel sounds throughout. Extremities w ithout cyanosis, clubbing. Posterior calves are nontender. Peripheral pulses are equal. Skin is warm and dry. Patient is awake, alert, oriented x3. Cranial nerves II - XII are grossly intact without focal neurological deficits. Strength is plus 5 out of 5 bilateral upper and lower extremities. Sensation is intact. Reflexes symmetrical. Intact [id number], rapid alternating movements, [id number]. Course - Re-evaluation Re-evalutation: 03/19/19 12:38 Patient presents emergency department for evaluation. Her vital signs are unremarkable. She had basic laboratory investigations, fluid, meclizine ordered. I did get an order Toradol as well. The Tegretol certainly can cause dizziness and a large subset of the population. She is feeling improved in regards to that. She is still only on a very low dose of the Tegretol. I will go ahead and have her follow-up with her primary care provider next week. She is to return to the emergency department with worsening or new concerning symptoms of any sort. 03/19/19 13:29 And feeling improved. She is to follow-up with primary care. She should discuss whether or not she she is continue the Tegretol with her primary care provider. She is advised to not stop it without discussion with her PCP. - Vital Signs Vital signs: Temp Pulse Resp BP Pulse Ox 98.3 F 87 20 127/84 H 95 03/19/19 11:02 03/19/19 11:02 03/19/19 11:02 03/19/19 11:02 03/19/19 11:02 - Laboratory Result Diagrams: 03/19/19 12:12 03/19/19 12:12 Laboratory results interpreted by me: 03/19/19 03/19/19 12:12 12:12 RDW 14.3 H BUN 6 L Glucose 116 H Total Bilirubin < 0.1 L - EKG Interpretation by Me Additional EKG results interpreted by me: 03/19/19 13:32 Sinus mechanism with a rate of 81 bpm. Normal axis and intervals, no acute ST changes concerning for ischemia or infarction. Discharge - Discharge Clinical Impression: Dizziness, Side effect of medication Headache Qualifiers: Headache type: unspecified Headache chronicity pattern: acute headache Intractability: not intractable Qualified Code(s): R51 - Headache Condition: Stable Disposition: HOME, SELF-CARE Instructions: Dizziness ([facility]), Headache ([facility]) Additional Instructions: It is likely that your dizziness and headache are as a result of your increased dose of Tegretol. Please do not stop this medication without discussing with your primary care provider. Rest, stay well-hydrated. Return to the emergency department with worsening or new concerning symptoms. Forms: Return to Work Referrals: TAVO CARBALLO MD [Primary Care Provider] - Follow up as needed
[2019-03-19 12:46] LABS: ALBUMIN 3.7 g/dL (3.5-5.0); ALKALINE PHOSPHATASE 92 U/L (38-126); ANION GAP 8 (5-19); ASPARTATE AMINO TRANSFERASE 18 U/L (14-36); BLOOD UREA NITROGEN 6 mg/dL (7-20); CALCIUM 8.9 mg/dL (8.4-10.2); CARBON DIOXIDE 27 mmol/L (22-30); CHLORIDE 103 mmol/L (98-107); GLUCOSE 116 mg/dL (75-110); POTASSIUM 3.8 mmol/L (3.6-5.0); TOTAL PROTEIN 6.8 g/dL (6.3-8.2)
[2019-03-19 12:48] LABS: BILIRUBIN,TOTAL < 0.1 mg/dL (0.2-1.3)
[2019-03-19 14:19] VITALS: BP 124/72
--- NOTE | 2019-03-19 14:21 | EKG REPORT ---
SEVERITY:- NORMAL ECG - SINUS RHYTHM : Confirmed by: Akin Rivas MD 19-Mar-2019 14:20:36
== END 2019-03-19 14:19 | disposition home or self-care (01) ==
LOC: ER 10:54
DX: R51 Headache (principal); R42 Dizziness and giddiness; I10 Essential (primary) hypertension; E11.9 Type 2 diabetes mellitus without complications; Z88.0 Allergy status to penicillin; Z91.013 Allergy to seafood; Z90.49 Acquired absence of other specified parts of digestive tract; Z98.51 Tubal ligation status
CPT/HCPCS: 93005; 99284; 96361; 96374; 36415; 85025; 80053; 93010; A9270 ×2; J1885; J7030

== ENCOUNTER 2019-03-20 18:38 | Emergency (ER) | payer MEDICARE, MEDICAID ==
[2019-03-20 18:52] VITALS: BP 119/86
== END 2019-03-20 20:00 | disposition left against medical advice (07) ==
LOC: ER 18:38
DX: Z53.21 Procedure and treatment not carried out due to patient leaving prior to being seen by health care provider (principal); R42 Dizziness and giddiness

== ENCOUNTER 2019-05-28 13:35 | Emergency (ER) | payer MEDICARE, MEDICAID ==
[2019-05-28 13:42] VITALS: BP 115/68
[2019-05-28] MEDS ORDERED: ACETAMINOPHEN 325 MG TABLET PO ONE (14:01)
--- NOTE | 2019-05-28 14:03 | ER Document Report ---
HPI - HPI Patient complains to provider of: Right knee pain Time Seen by Provider: 05/28/19 13:56 Onset: Other - Since 2018 Onset/Duration: Persistent Quality of pain: Achy Pain Level: 5 Context: This 44-year-old female presents emergency department with complaints of chronic knee pain. Reports she has been hurting since she hurt it in 2018. She reports she is cared for by [facility] and they prescribe her Celebrex but it does not help with the pain. Denies recent trauma. Denies fever vomiting diarrhea. Patient drove herself here. Patient asking for more pain meds or steroid injection into her knee. Associated Symptoms: None Exacerbated by: Movement, Walking Relieved by: Denies Similar symptoms previously: Yes Recently seen / treated by doctor: Yes - REPRODUCTIVE Reproductive: DENIES: : Past Medical History - General Information source: Patient Last Menstrual Period: Menopause - Social History Smoking Status: Never Smoker Chew tobacco use (# tins/day): No Drug Abuse: None Family History: Reviewed & Not Pertinent, CAD, DM, Hypertension, Other - [place] Patient has suicidal ideation: No Patient has homicidal ideation: No - Past Medical History Cardiac Medical History: Reports: Hx Hypertension Pulmonary Medical History: Reports: Hx Bronchitis Endocrine Medical History: Reports: Hx Diabetes Mellitus Type 2 Renal/ Medical History: Denies: Hx Peritoneal Dialysis Psychiatric Medical History: Reports: Hx Bipolar Disorder, Hx Depression Past Surgical History: Reports: Hx Adenoidectomy, Hx Section - X4, Hx Cholecystectomy, Hx Tubal Ligation - Immunizations Hx Diphtheria, Pertussis, Tetanus Vaccination: Yes Vertical Provider Document - CONSTITUTIONAL Agree With Documented VS: Yes Exam Limitations: No Limitations General Appearance: WD/WN, No Apparent Distress - INFECTION CONTROL TRAVEL OUTSIDE OF THE [place] IN LAST 30 DAYS: No - HEENT HEENT: Atraumatic, Normocephalic - NECK Neck: Supple - RESPIRATORY Respiratory: No Respiratory Distress - CARDIOVASCULAR Cardiovascular: Regular Rate - MUSCULOSKELETAL/EXTREMETIES Musculoskeletal/Extremeties: MAEW, FROM, Tender - no erythema, no swelling, no obvious deformity. Patient has full range of motion. - NEURO Level of Consciousness: Awake, Alert, Appropriate Motor/Sensory: No Motor Deficit - DERM Integumentary: Warm, Dry Course - Re-evaluation Re-evalutation: 05/28/19 14:10 44-year-old female presents emergency department with complaints of chronic right knee pain. Reports she is taking Celebrex that was prescribed by [facility] but is not helping with the pain. She is requesting more pain meds or a shot in her knee. Patient was offered Tylenol and accepted. She was instructed to follow back up with [facility] to discuss pain management. She verbalized understanding to all instructions. Right knee with no obvious deformity no swelling no erythema no warmth. Dictation of this chart was performed using voice recognition software; therefore, there may be some unintended grammatical errors. - Vital Signs Vital signs: Temp Pulse Resp BP Pulse Ox 98.3 F 92 16 115/68 99 05/28/19 13:40 05/28/19 13:40 05/28/19 13:40 05/28/19 13:40 05/28/19 13:40 Discharge - Discharge Clinical Impression: Chronic pain of right knee Condition: Stable Disposition: HOME, SELF-CARE Instructions: Acetaminophen, Ice & Elevation ([facility]) Additional Instructions: *You have been evaluated for chronic right knee pain *Rest/Ice packs as indicated * Follow up with [facility] within one week for recheck and to discuss pain management as indicated *Return to ED for worsening condition, changes, needs Referrals: TAVO CARBALLO MD [Primary Care Provider] - Follow up in 1 week
== END 2019-05-28 14:15 | disposition home or self-care (01) ==
LOC: ER 13:35
DX: M25.561 Pain in right knee (principal); G89.29 Other chronic pain; Z79.899 Other long term (current) drug therapy; I10 Essential (primary) hypertension; E11.9 Type 2 diabetes mellitus without complications
CPT/HCPCS: 99283; A9270

== ENCOUNTER 2019-06-16 21:52 | Emergency (ER) | payer MEDICARE, MEDICAID ==
[2019-06-16] MEDS ORDERED: ASPIRIN 81 MG TABLET, CHEWABLE PO ONE (22:31)
--- NOTE | 2019-06-16 22:34 | ER Document Report ---
ED Medical Screen (RME) - General Chief Complaint: Chest Pain Stated Complaint: CHEST PAIN,HEADACHE Time Seen by Provider: 06/16/19 22:28 Primary Care Provider: TAVO CARBALLO MD [Primary Care Provider] - Follow up as needed TRAVEL OUTSIDE OF THE [place] IN LAST 30 DAYS: No - HPI Notes: 06/16/19 22:32 44-year-old female to the emergency department with complaints of left-sided chest pain that started suddenly this evening at 9 PM. She states that she was laying down to bed when the pain started. She denies any nausea or vomiting, diaphoresis. She states that she does have a little bit of shortness of breath and she also states that she has a headache. She states that she is never had a heart attack before. She does have a brother who from a massive h eart attack 2 years ago. She does acknowledge that she has hyperlipidemia. She denies any history of diabetes or hypertension. She is never had a stroke. She denies any leg swelling or recent travel. Performed a medical screening exam on patient. Brief PHYSICAL EXAMINATION: GENERAL: Well-appearing, well-nourished and in no acute distress. HEAD: Atraumatic, normocephalic. There appears to be a thyroid nodule the patient states she did not realize she had. LUNGS: Normal work of breathing HEART: 2+ radial pulses bilaterally EXTREMITIES: no pitting or edema. No cyanosis. NEUROLOGICAL: No focal neurological deficits. Moves all extremities spontaneously and on command. PSYCH: Normal mood, normal affect. SKIN: Warm, Dry, normal turgor, no rashes or lesions noted. Illustrates regular rate and rhythm on chest auscultation We will have my main side colleague further manage and evaluate patient. - Related Data Allergies/Adverse Reactions: Iodinated Contrast Media [IV Dye, Iodine Containing] Allergy (Verified 03/19/19 10:55) iodine [Iodine] Allergy (Verified 03/19/19 10:55) Penicillins Allergy (Verified 03/19/19 10:55) Shellfish * [Shellfish] Allergy (Verified 03/19/19 10:55) valbenazine [From Ingrezza] Allergy (Verified 03/19/19 10:55) Past Medical History - Social History Frequency of alcohol use: None Drug Abuse: None - Past Medical History Cardiac Medical History: Reports: Hx Hypertension Pulmonary Medical History: Reports: Hx Bronchitis Endocrine Medical History: Reports: Hx Diabetes Mellitus Type 2 Renal/ Medical History: Denies: Hx Peritoneal Dialysis Psychiatric Medical History: Reports: Hx Bipolar Disorder, Hx Depression Past Surgical History: Reports: Hx Adenoidectomy, Hx Section - X4, Hx Cholecystectomy, Hx Tubal Ligation - Immunizations Hx Diphtheria, Pertussis, Tetanus Vaccination: Yes Physical Exam - Vital signs Vitals: Temp Pulse Resp BP Pulse Ox 98.7 F 91 20 133/90 H 97 06/16/19 22:08 06/16/19 22:08 06/16/19 22:08 06/16/19 22:08 06/16/19 22:08 Course - Vital Signs Vital signs: Temp Pulse Resp BP Pulse Ox 98.7 F 91 20 133/90 H 97 06/16/19 22:08 06/16/19 22:08 06/16/19 22:08 06/16/19 22:08 06/16/19 22:08 Doctor's Discharge - Discharge Referrals: TAVO CARBALLO MD [Primary Care Provider] - Follow up as needed
[2019-06-16 22:56] LABS: ABSOLUTE BASOPHILS # (AUTO) 0.1 10^3/uL (0.0-0.2); ABSOLUTE LYMPHOCYTES (AUTO) 3.3 10^3/uL (0.5-4.7); ABSOLUTE MONOCYTES (AUTO) 0.5 10^3/uL (0.1-1.4); ABSOLUTE NEUT (AUTO) 4.1 10^3/uL (1.7-8.2); BASOPHILS % (AUTO) 0.8 % (0-2); HEMATOCRIT 39.1 % (36.0-47.0); HEMOGLOBIN 13.4 g/dL (12.0-15.5); LYMPHOCYTES % (AUTO) 41.4 % (13-45); MEAN CORPUSCULAR HGB CONC 34.1 g/dL (32.0-36.0); MEAN CORPUSCULAR VOLUME 88 fl (80-97); MONOCYTES % (AUTO) 6.5 % (3-13); PLATELET COUNT 367 10^3/uL (150-450); RED BLOOD COUNT 4.45 10^6/uL (3.72-5.28); RED CELL DISTRIBUTION WIDTH 13.9 % (11.5-14.0); SEGMENTED NEUTROPHILS % (AUTO) 51.3 % (42-78); TOTAL CELLS COUNTED % (AUTO) 100 %
[2019-06-16 23:15] LABS: INTERNATIONAL RATION (INR) 0.99
[2019-06-16 23:16] LABS: PARTIAL THROMBOPLASTIN TIME 31.8 SEC (23.5-35.8)
[2019-06-16 23:18] LABS: ALBUMIN 4.2 g/dL (3.5-5.0); ALKALINE PHOSPHATASE 100 U/L (38-126); ANION GAP 11 (5-19); ASPARTATE AMINO TRANSFERASE 20 U/L (14-36); BILIRUBIN,DIRECT 0.2 mg/dL (0.0-0.4); BILIRUBIN,TOTAL 0.2 mg/dL (0.2-1.3); BLOOD UREA NITROGEN 5 mg/dL (7-20); CALCIUM 9.6 mg/dL (8.4-10.2); CARBON DIOXIDE 25 mmol/L (22-30); CHLORIDE 105 mmol/L (98-107); GLUCOSE 100 mg/dL (75-110); POTASSIUM 4.1 mmol/L (3.6-5.0); TOTAL PROTEIN 7.7 g/dL (6.3-8.2)
--- NOTE | 2019-06-17 00:37 | RADIOLOGY REPORT (SQ) ---
EXAM DESCRIPTION: XR CHEST 2 VIEWS COMPLETED DATE/TME: 06/16/2019 22:31 CLINICAL HISTORY: chest pain COMPARISON: 05/07/2018 FINDINGS: Frontal and lateral views of the chest. Cardiomediastinal silhouette: Normal size and contour. Lungs: No consolidation, pneumothorax, or pleural effusion. Low lung volumes. Bones: Degenerative change of the spine. Upper abdomen: No abnormality identified. IMPRESSION: 1. No acute pulmonary process identified.
[2019-06-17] MEDS ORDERED: TRAMADOL HCL 50 MG TABLET PO ONE (06:31)
--- NOTE | 2019-06-17 09:30 | ER Document Report ---
ED General - General Chief Complaint: Chest Pain Stated Complaint: CHEST PAIN,HEADACHE Time Seen by Provider: 06/16/19 22:28 Primary Care Provider: TAVO CARBALLO MD [NO LOCAL MD] - Follow up as needed TRAVEL OUTSIDE OF THE [place] IN LAST 30 DAYS: No - HPI Notes: This is a 44-year-old female who presents today with a complaint of midsternal chest pain that started yesterday around 9 PM. Patient describes the pain as sharp, worse with certain movement and palpation. She denies any dyspnea. Pain is nonradiating. Patient states that she had some trouble sleeping because of the pain so she decided to come to the emergency department for evaluation. She feels better now. Patient notes that she has been doing some strenuous activity recently. She also has had some cough and congestion. Cough is nonproductive. Denies any recent travel. She denies any estrogen use. She denies any calf pain. - Related Data Allergies/Adverse Reactions: Iodinated Contrast Media [IV Dye, Iodine Containing] Allergy (Verified 03/19/19 10:55) iodine [Iodine] Allergy (Verified 03/19/19 10:55) Penicillins Allergy (Verified 03/19/19 10:55) Shellfish * [Shellfish] Allergy (Verified 03/19/19 10:55) valbenazine [From Ingrezza] Allergy (Verified 03/19/19 10:55) Past Medical History - Social History Smoking Status: Never Smoker Frequency of alcohol use: None Drug Abuse: None Family History: Reviewed & Not Pertinent, CAD, DM, Hypertension, Other - [place] Patient has suicidal ideation: No Patient has homicidal ideation: No - Past Medical History Cardiac Medical History: Reports: Hx Hypertension Pulmonary Medical History: Reports: Hx Bronchitis Endocrine Medical History: Reports: Hx Diabetes Mellitus Type 2 Renal/ Medical History: Denies: Hx Peritoneal Dialysis Psychiatric Medical History: Reports: Hx Bipolar Disorder, Hx Depression Past Surgical History: Reports: Hx Adenoidectomy, Hx Section - X4, Hx Cholecystectomy, Hx Tubal Ligation - Immunizations Hx Diphtheria, Pertussis, Tetanus Vaccination: Yes Review of Systems - Review of Systems Cardiovascular: Chest pain Respiratory: Cough. denies: Hurts to breathe Neurological/Psychological: denies: Headaches -: Yes All other systems reviewed and negative Physical Exam - Vital signs Vitals: Temp Pulse Resp BP Pulse Ox 98.7 F 91 20 133/90 H 97 06/16/19 22:08 06/16/19 22:08 06/16/19 22:08 06/16/19 22:08 06/16/19 22:08 - General General appearance: Appears well, Alert - Respiratory Respiratory status: No respiratory distress Chest status: Nontender Breath sounds: Normal Chest palpation: Tender - Reproducible pain in the anterior chest wall. There is pain with movement. - Cardiovascular Rhythm: Regular Heart sounds: Normal auscultation Murmur: No - Abdominal Inspection: Normal Distension: No distension Bowel sounds: Normal Tenderness: Nontender Organomegaly: No organomegaly - Extremities General upper extremity: Normal inspection, Nontender, Normal color, Normal ROM, Normal temperature General lower extremity: Normal inspection, Nontender, Normal color, Normal ROM, Normal temperature, Normal weight bearing. No: Gerald's sign - Neurological Neuro grossly intact: Yes Cognition: Normal Orientation: AAOx4 Conrad Coma Scale Eye Opening: Spontaneous Anders Coma Scale Verbal: Oriented Anders Coma Scale Motor: Obeys Commands Conrad Coma Scale Total: 15 Speech: Normal Motor strength normal: LUE, RUE, LLE, RLE Sensory: Normal - Psychological Associated symptoms: Normal affect, Normal mood Course - Re-evaluation Re-evalutation: 06/17/19 07:27 Patient diagnosis includes chest wall strain versus costochondritis versus bronchitis versus pneumonia. I doubt acute coronary syndrome with reproducible chest pain greater than 8 hours. Can rule out with one negative troponin. However, I will be conservative and get to the. There is no clinical suspicion for pulmonary embolus. Wells score is 0. EKG shows normal sinus rhythm at 90 bpm. Normal axis. Normal intervals. Normal EKG. 0915 Patient is doing well. Troponin negative x2. No clinical evidence for ACS. She is stable for discharge. - Vital Signs Vital signs: Temp Pulse Resp BP Pulse Ox 98.1 F 88 17 104/67 97 06/17/19 06:45 06/17/19 06:45 06/17/19 06:45 06/17/19 06:45 06/17/19 06:45 - Laboratory Result Diagrams: 06/16/19 22:45 06/16/19 22:45 Laboratory results interpreted by me: 06/16/19 22:45 BUN 5 L Discharge - Discharge Clinical Impression: Costochondritis Chest wall muscle strain Qualifiers: Encounter type: initial encounter Qualified Code(s): S29.011A - Strain of muscle and tendon of front wall of thorax, initial encounter URI (upper respiratory infection) Qualifiers: URI type: unspecified viral URI Qualified Code(s): J06.9 - Acute upper respi ratory infection, unspecified Condition: Good Disposition: HOME, SELF-CARE Instructions: Chest Wall Pain ([facility]), Upper Respiratory Illness ([facility]), Costochondritis ([facility]) Prescriptions: Naproxen 500 mg PO BID PRN #14 tablet PRN Reason: Referrals: TAVO CARBALLO MD [NO LOCAL MD] - Follow up as needed
[2019-06-17 09:38] VITALS: BP 110/69
--- NOTE | 2019-06-18 22:09 | EKG REPORT ---
SEVERITY:- NORMAL ECG - SINUS RHYTHM : Confirmed by: Fatoumata Garcia 18-Jun-2019 22:08:36
== END 2019-06-17 09:30 | disposition home or self-care (01) ==
LOC: ER 21:52
DX: S29.011A Strain of muscle and tendon of front wall of thorax, initial encounter (principal); X58.XXXA Exposure to other specified factors, initial encounter; J06.9 Acute upper respiratory infection, unspecified; B97.89 Other viral agents as the cause of diseases classified elsewhere; M94.0 Chondrocostal junction syndrome [Tietze]; R05 Cough; I10 Essential (primary) hypertension; E11.9 Type 2 diabetes mellitus without complications; Z91.041 Radiographic dye allergy status; Z88.0 Allergy status to penicillin; Z91.013 Allergy to seafood; Z88.8 Allergy status to other drugs, medicaments and biological substances; Z82.49 Family history of ischemic heart disease and other diseases of the circulatory system
CPT/HCPCS: 93005; 99285; 36415; 84443; 85025; 85610; 85730; 80053; 84484; 71046; 93010; A9270 ×2

== ENCOUNTER 2019-08-16 08:27 | Emergency (ER) | payer MEDICARE, MEDICAID ==
--- NOTE | 2019-08-16 09:18 | ER Document Report ---
ED Medical Screen (RME) - General Chief Complaint: Abdominal Pain Stated Complaint: ABDOMINAL PAIN Time Seen by Provider: 08/16/19 09:16 Mode of Arrival: Wheelchair Information source: Patient Notes: 44-year-old female presented to ED for complaint of left lower quadrant abdominal pain nausea diarrhea no blood in the stool with no fever. She does have a history of diverticulitis. Last time she had diverticulitis was 2018. She states she started having pain again this morning about 1 AM. She does have active bowel sounds and does have tenderness to the left lower quadrant. I have greeted and performed a rapid initial assessment of this patient. A comprehensive ED assessment and evaluation of the patient, analysis of test results and completion of medical decision making process will be conducted by an additional ED providers. TRAVEL OUTSIDE OF THE [place] IN LAST 30 DAYS: No - Related Data Allergies/Adverse Reactions: Iodinated Contrast Media [IV Dye, Iodine Containing] Allergy (Verified 03/19/19 10:55) iodine [Iodine] Allergy (Verified 03/19/19 10:55) Penicillins Allergy (Verified 03/19/19 10:55) Shellfish * [Shellfish] Allergy (Verified 03/19/19 10:55) valbenazine [From Ingrezza] Allergy (Verified 03/19/19 10:55) Past Medical History - Past Medical History Cardiac Medical History: Reports: Hx Hypertension Pulmonary Medical History: Reports: Hx Bronchitis Endocrine Medical History: Reports: Hx Diabetes Mellitus Type 2 Renal/ Medical History: Denies: Hx Peritoneal Dialysis Psychiatric Medical History: Reports: Hx Bipolar Disorder, Hx Depression Past Surgical History: Reports: Hx Adenoidectomy, Hx Section - X4, Hx Cholecystectomy, Hx Tubal Ligation - Immunizations Hx Diphtheria, Pertussis, Tetanus Vaccination: Yes Physical Exam - Vital signs Vitals: Temp Pulse Resp BP Pulse Ox 98.3 F 77 16 148/83 H 94 08/16/19 08:40 08/16/19 08:40 08/16/19 08:40 08/16/19 08:40 08/16/19 08:40 Course - Vital Signs Vital signs: Temp Pulse Resp BP Pulse Ox 98.3 F 77 16 148/83 H 94 08/16/19 08:40 08/16/19 08:40 08/16/19 08:40 08/16/19 08:40 08/16/19 08:40
[2019-08-16] MEDS ORDERED: ONDANSETRON 4 MG TAB.RAPDIS PO ONE (09:19)
[2019-08-16 09:45] LABS: ABSOLUTE LYMPHOCYTES (AUTO) 2.6 10^3/uL (0.5-4.7); HEMATOCRIT 38.4 % (36.0-47.0); MEAN CORPUSCULAR VOLUME 87 fl (80-97); RED CELL DISTRIBUTION WIDTH 14.2 % (11.5-14.0); TOTAL CELLS COUNTED % (AUTO) 100 %
[2019-08-16 09:51] LABS: ABSOLUTE BASOPHILS # (AUTO) 0.1 10^3/uL (0.0-0.2); ABSOLUTE MONOCYTES (AUTO) 0.4 10^3/uL (0.1-1.4); ABSOLUTE NEUT (AUTO) 3.7 10^3/uL (1.7-8.2); BASOPHILS % (AUTO) 0.8 % (0-2); EOSINOPHILS % (AUTO) 0.1 % (0-6); HEMOGLOBIN 12.9 g/dL (12.0-15.5); LYMPHOCYTES % (AUTO) 38.8 % (13-45); MEAN CORPUSCULAR HEMOGLOBIN 29.3 pg (27.0-33.4); MEAN CORPUSCULAR HGB CONC 33.5 g/dL (32.0-36.0); MONOCYTES % (AUTO) 5.4 % (3-13); PLATELET COUNT 378 10^3/uL (150-450); SEGMENTED NEUTROPHILS % (AUTO) 54.9 % (42-78); WHITE BLOOD COUNT 6.8 10^3/uL (4.0-10.5)
[2019-08-16 10:14] LABS: ALKALINE PHOSPHATASE 90 U/L (38-126); ANION GAP 10 (5-19); ASPARTATE AMINO TRANSFERASE 24 U/L (14-36); BILIRUBIN,DIRECT 0.3 mg/dL (0.0-0.4); BILIRUBIN,TOTAL 0.3 mg/dL (0.2-1.3); BLOOD UREA NITROGEN 5 mg/dL (7-20); CALCIUM 9.6 mg/dL (8.4-10.2); CARBON DIOXIDE 28 mmol/L (22-30); CHLORIDE 104 mmol/L (98-107); GLUCOSE 116 mg/dL (75-110); POTASSIUM 3.9 mmol/L (3.6-5.0); TOTAL PROTEIN 7.6 g/dL (6.3-8.2)
[2019-08-16 10:31] LABS: APPEARANCE,URINE SLIGHTLY-CLOUDY; BILIRUBIN,URINE NEGATIVE (NEGATIVE); COLOR,URINE YELLOW; GLUCOSE, URINE NEGATIVE (NEGATIVE); KETONES,URINE NEGATIVE (NEGATIVE); PROTEIN,URINE NEGATIVE (NEGATIVE); URINE SPECIFIC GRAVITY 1.011; UROBILINOGEN,URINE NEGATIVE mg/dL (<2.0)
--- NOTE | 2019-08-16 10:37 | ER Document Report ---
ED General - General Chief Complaint: Abdominal Pain Stated Complaint: ABDOMINAL PAIN Time Seen by Provider: 08/16/19 09:16 Primary Care Provider: TAVO CARBALLO MD [Primary Care Provider] - Follow up as needed Mode of Arrival: Wheelchair TRAVEL OUTSIDE OF THE [place] IN LAST 30 DAYS: No - HPI Notes: 44f with prior episode of "diverticulitis for which she had severe lower colon bleeding requiring "5 units of blood" no surgery or endoscope interventions but a [facility], who presents today she says for gradual onset left lower quadrant pain. She denies any urinary symptoms she denies any vomiting she did have some nausea. She denies any radiation of the pain. She says she has not been constipated her last bowel movement was this morning soft easy no straining and she did not notice any blood in it it was brown-colored b ut she noticed in her underwear some red dried blood in the posterior part of her absorbent pad. She denies any vaginal bleeding. Last menstrual period 08/03/2019. No vaginal discharge no recent or new sexual partners or vaginal pain. She says that she otherwise has not had any diarrheal illnesses or change in her regularity of her bowels. She thinks this is all started from eating a's large number of whopper hamburgers with sesame seed buns instead of asking for potato buns. Other history: BPD on Depakote with tardive dyskinesia, carbamazepine, Celebrex 2 times a day. Tylenol 653 times a day to help with her arthritis pain since she knows she cannot take any other NSAIDs with Celebrex. Protonix once a day and atorvastatin 20. - Related Data Allergies/Adverse Reactions: Iodinated Contrast Media [IV Dye, Iodine Containing] Allergy (Verified 03/19/19 10:55) iodine [Iodine] Allergy (Verified 03/19/19 10:55) Penicillins Allergy (Verified 03/19/19 10:55) Shellfish * [Shellfish] Allergy (Verified 03/19/19 10:55) valbenazine [From Ingrezza] Allergy (Verified 03/19/19 10:55) Home Medications: Carbamazepine. Atorvastatin. Celebrex Past Medical History - General Information source: Patient - Social History Smoking Status: Never Smoker Frequency of alcohol use: None Drug Abuse: None Lives with: Spouse/Significant other - And her daughter Family History: Reviewed & Not Pertinent, CAD, DM, Hypertension, Other - [place] Patient has suicidal ideation: No Patient has homicidal ideation: No - Past Medical History Cardiac Medical History: Reports: Hx Hypercholesterolemia Denies: Hx Hypertension - pt denies Pulmonary Medical History: Reports: Hx Bronchitis Endocrine Medical History: Reports: Hx Diabetes Mellitus Type 2 Renal/ Medical History: Denies: Hx Peritoneal Dialysis Psychiatric Medical History: Reports: Hx Bipolar Disorder, Hx Depression Past Surgical History: Reports: Hx Adenoidectomy, Hx Section - X4, Hx Cholecystectomy, Hx Tubal Ligation - Immunizations Hx Diphtheria, Pertussis, Tetanus Vaccination: Yes Review of Systems - Review of Systems Constitutional: No symptoms reported EENT: No symptoms reported Cardiovascular: No symptoms reported Respiratory: No symptoms reported Gastrointestinal: See HPI Genitourinary: No symptoms reported Female Genitourinary: No symptoms reported Musculoskeletal: No symptoms reported Skin: No symptoms reported Hematologic/Lymphatic: No symptoms reported Neurological/Psychological: No symptoms reported Physical Exam - Vital signs Vitals: Temp Pulse Resp BP Pulse Ox 98.3 F 77 16 148/83 H 94 08/16/19 08:40 08/16/19 08:40 08/16/19 08:40 08/16/19 08:40 08/16/19 08:40 Interpretation: Normal - General General appearance: Appears well, Alert In distress: None - Walks to the bathroom independently very well-appearing interactive accompanied by her young daughter - HEENT Head: Normocephalic, Atraumatic Eyes: Normal Pupils: PERRL - Respiratory Respiratory status: No respiratory distress Chest status: Nontender Breath sounds: Normal Chest palpation: Normal - Cardiovascular Rhythm: Regular Heart sounds: Normal auscultation Murmur: No - Abdominal Inspection: Normal Distension: No distension Bowel sounds: Normal Tenderness: Other - Mild tenderness to deep palpation left lower quadrant. No rebound guarding no peritoneal signs at all Organomegaly: No organomegaly - Rectal Stool: Heme negative, Other - Clear. No: Black, Bloody Hemorrhoids: None - Back Back: Normal, Nontender - Extremities General upper extremity: Normal inspection, Nontender, Normal color, Normal ROM, Normal temperature General lower extremity: Normal inspection, Nontender, Normal color, Normal ROM, Normal temperature, Normal weight bearing. No: Gerald's sign - Neurological Neuro grossly intact: Yes Cognition: Normal Orientation: AAOx4 Anders Coma Scale Eye Opening: Spontaneous [place] Coma Scale Verbal: Oriented [place] Coma Scale Motor: Obeys Commands [place] Coma Scale Total: 15 Speech: Normal Motor strength normal: LUE, RUE, LLE, RLE Sensory: Normal - Psychological Associated symptoms: Normal affect, Normal mood - Skin Skin Temperature: Warm Skin Moisture: Dry Skin Color: Normal Course - Vital Signs Vital signs: Temp Pulse Resp BP Pulse Ox 98.3 F 77 16 148/83 H 94 08/16/19 08:40 08/16/19 08:40 08/16/19 08:40 08/16/19 08:40 08/16/19 08:40 - Laboratory Result Diagrams: 08/16/19 09:34 08/16/19 09:34 Laboratory results interpreted by me: 08/16/19 08/16/19 09:34 09:34 RDW 14.2 H BUN 5 L Glucose 116 H Discharge - Discharge Clinical Impression: Blood per rectum Abdominal pain Qualifiers: Abdominal location: left lower quadrant Qualified Code(s): R10.32 - Left lower quadrant pain Condition: Good Disposition: HOME, SELF-CARE Additional Instructions: Today in the emergency department you had a reassuring abdominal exam your abdomen was nice and soft. On your rectal exam I do not see any hemorrhoids that are bleeding and you had brown stool that was not positive for hidden blood on testing. Still you might of had some blood earlier since he obviously had some bloody residue on your undergarment. Therefore please make sure you are continuing to eat and drink well eat a diet with a lot of fiber and stay hydrated. Eat things like fresh fruits and vegetables, grains breads. You can still eat grains and breads with a history of diverticulitis. And make sure you are drinking plenty of water and other liquids. You can use 650 mg of Tylenol that you have for your arthritis up to every 6 hours also as needed for your abdominal pain. If you begin to have continued bleeding or worsening abdominal pain despite making sure you are staying hydrated and avoiding constipation please come back to the ED and talk to your doctor. Otherwise also watch for any fevers chills sweats nausea vomiting inability to hold down or take anything by mouth. Prescriptions: Polyethylene Glycol 3350 [Miralax Powder 17 gm/Packet] 1 packet PO DAILY #1 pkg Referrals: TAVO CARBALLO MD [Primary Care Provider] - Follow up as needed
[2019-08-16] MEDS ORDERED: ACETAMINOPHEN 325 MG TABLET PO PRN (11:49)
[2019-08-16 11:51] VITALS: BP 129/71
== END 2019-08-16 11:59 | disposition home or self-care (01) ==
LOC: ER 08:27
DX: K62.5 Hemorrhage of anus and rectum (principal); R10.32 Left lower quadrant pain; R10.814 Left lower quadrant abdominal tenderness; R11.0 Nausea; E78.00 Pure hypercholesterolemia, unspecified; E11.9 Type 2 diabetes mellitus without complications; F31.9 Bipolar disorder, unspecified; M19.90 Unspecified osteoarthritis, unspecified site; Z79.899 Other long term (current) drug therapy; Z79.1 Long term (current) use of non-steroidal anti-inflammatories (NSAID); Z90.49 Acquired absence of other specified parts of digestive tract; Z87.19 Personal history of other diseases of the digestive system; Z98.51 Tubal ligation status; Z91.041 Radiographic dye allergy status; Z88.0 Allergy status to penicillin; Z91.013 Allergy to seafood
CPT/HCPCS: 99284; 36415; 83690; 84703; 85025; 80053; 81001; A9270 ×2; S0119

== ENCOUNTER 2019-08-17 20:30 | Emergency (ER) | payer MEDICARE, MEDICAID ==
--- NOTE | 2019-08-17 20:55 | ER Document Report ---
ED Medical Screen (RME) - General Stated Complaint: LEFT SIDE PAIN Time Seen by Provider: 08/17/19 20:52 Primary Care Provider: TAVO CARBALLO MD [Primary Care Provider] - Follow up as needed Mode of Arrival: Wheelchair Information source: Patient Notes: 44-year-old female presents emergency department with complaints of left lower quad abdominal pain. Reports history of diverticulitis. Reports she was seen here yesterday but is feeling worse. I have greeted and performed a rapid initial assessment of this patient. A comprehensive ED assessment and evaluation of the patient, analysis of test results and completion of the medical decision making process will be conducted by additional ED providers. TRAVEL OUTSIDE OF THE [place] IN LAST 30 DAYS: No - Related Data Allergies/Adverse Reactions: Iodinated Contrast Media [IV Dye, Iodine Containing] Allergy (Verified 03/19/19 10:55) iodine [Iodine] Allergy (Verified 03/19/19 10:55) Penicillins Allergy (Verified 03/19/19 10:55) Shellfish * [Shellfish] Allergy (Verified 03/19/19 10:55) valbenazine [From Ingrezza] Allergy (Verified 03/19/19 10:55) Past Medical History - Past Medical History Cardiac Medical History: Reports: Hx Hypercholesterolemia Denies: Hx Hypertension - pt denies Pulmonary Medical History: Reports: Hx Bronchitis Endocrine Medical History: Reports: Hx Diabetes Mellitus Type 2 Renal/ Medical History: Denies: Hx Peritoneal Dialysis Psychiatric Medical History: Reports: Hx Bipolar Disorder, Hx Depression Past Surgical History: Reports: Hx Adenoidectomy, Hx Section - X4, Hx Cholecystectomy, Hx Tubal Ligation - Immunizations Hx Diphtheria, Pertussis, Tetanus Vaccination: Yes Doctor's Discharge - Discharge Referrals: TAVO CARBALLO MD [Primary Care Provider] - Follow up as needed
[2019-08-17 21:42] LABS: ABSOLUTE BASOPHILS # (AUTO) 0.1 10^3/uL (0.0-0.2); ABSOLUTE LYMPHOCYTES (AUTO) 3.6 10^3/uL (0.5-4.7); ABSOLUTE MONOCYTES (AUTO) 0.4 10^3/uL (0.1-1.4); ABSOLUTE NEUT (AUTO) 4.6 10^3/uL (1.7-8.2); BASOPHILS % (AUTO) 1.3 % (0-2); EOSINOPHILS % (AUTO) 0.1 % (0-6); HEMATOCRIT 39.3 % (36.0-47.0); LYMPHOCYTES % (AUTO) 41.6 % (13-45); MEAN CORPUSCULAR HGB CONC 33.2 g/dL (32.0-36.0); MEAN CORPUSCULAR VOLUME 88 fl (80-97); MONOCYTES % (AUTO) 4.7 % (3-13); PLATELET COUNT 398 10^3/uL (150-450); RED BLOOD COUNT 4.49 10^6/uL (3.72-5.28); RED CELL DISTRIBUTION WIDTH 14.1 % (11.5-14.0); SEGMENTED NEUTROPHILS % (AUTO) 52.3 % (42-78); TOTAL CELLS COUNTED % (AUTO) 100 %; WHITE BLOOD COUNT 8.8 10^3/uL (4.0-10.5)
[2019-08-17 21:52] LABS: APPEARANCE,URINE CLEAR; BILIRUBIN,URINE NEGATIVE (NEGATIVE); COLOR,URINE YELLOW; GLUCOSE, URINE NEGATIVE (NEGATIVE); KETONES,URINE NEGATIVE (NEGATIVE); LEUKOCYTE ESTERASE,URINE TRACE (NEGATIVE); NITRITE,URINE NEGATIVE (NEGATIVE); PROTEIN,URINE NEGATIVE (NEGATIVE); UROBILINOGEN,URINE NEGATIVE mg/dL (<2.0)
[2019-08-17 22:01] LABS: ALBUMIN 4.3 g/dL (3.5-5.0); ALKALINE PHOSPHATASE 93 U/L (38-126); ANION GAP 11 (5-19); ASPARTATE AMINO TRANSFERASE 24 U/L (14-36); BILIRUBIN,DIRECT 0.3 mg/dL (0.0-0.4); BILIRUBIN,TOTAL 0.3 mg/dL (0.2-1.3); BLOOD UREA NITROGEN 5 mg/dL (7-20); CALCIUM 9.9 mg/dL (8.4-10.2); CARBON DIOXIDE 28 mmol/L (22-30); CHLORIDE 102 mmol/L (98-107); GLUCOSE 106 mg/dL (75-110); POTASSIUM 3.8 mmol/L (3.6-5.0); TOTAL PROTEIN 8.2 g/dL (6.3-8.2)
[2019-08-18] MEDS ORDERED: MORPHINE SULFATE 10 MG/ML INJ IV ONE (00:59)
--- NOTE | 2019-08-18 01:03 | ER Document Report ---
ED GI/ - General Chief Complaint: Abdominal Pain Stated Complaint: LEFT SIDE PAIN Time Seen by Provider: 08/17/19 20:52 Primary Care Provider: TAVO CARBALLO MD [Primary Care Provider] - Follow up as needed Mode of Arrival: Wheelchair Notes: 44-year-old woman presents to the emergency department with a complaint of left lower quadrant abdominal pain. She was seen in the emergency department a few days ago and at that time was told if the pain continued to return to the emergency department for further evaluation and treatment. She has had a history of diverticulitis in the past and feels as though this is a flareup of diverticulitis. She denies fever, nausea and vomiting. She has had episodic diarrhea and has noted no blood in her stools. TRAVEL OUTSIDE OF THE [place] IN LAST 30 DAYS: No - Related Data Allergies/Adverse Reactions: Iodinated Contrast Media [IV Dye, Iodine Containing] Allergy (Verified 03/19/19 10:55) iodine [Iodine] Allergy (Verified 03/19/19 10:55) Penicillins Allergy (Verified 03/19/19 10:55) Shellfish * [Shellfish] Allergy (Verified 03/19/19 10:55) valbenazine [From Ingrezza] Allergy (Verified 03/19/19 10:55) Home Medications: Carbamazapine. celebrex. tylenol. atoravastatin Past Medical History - General Information source: Patient - Social History Smoking Status: Never Smoker Chew tobacco use (# tins/day): No Frequency of alcohol use: None Drug Abuse: None Family History: Reviewed & Not Pertinent, CAD, DM, Hypertension, Other - [place] Patient has suicidal ideation: No Patient has homicidal ideation: No - Past Medical History Cardiac Medical History: Reports: Hx Hypercholesterolemia Denies: Hx Hypertension - pt denies Pulmonary Medical History: Reports: Hx Bronchitis Endocrine Medical History: Reports: Hx Diabetes Mellitus Type 2 Renal/ Medical History: Denies: Hx Peritoneal Dialysis Psychiatric Medical History: Reports: Hx Bipolar Disorder, Hx Depression Past Surgical History: Reports: Hx Adenoidectomy, Hx Section - X4, Hx Cholecystectomy, Hx Tubal Ligation - Immunizations Hx Diphtheria, Pertussis, Tetanus Vaccination: Yes Review of Systems - Review of Systems Notes: Constitutional: Negative for fever. HENT: Negative for sore throat. Eyes: Negative for visual changes. Cardiovascular: Negative for chest pain. Respiratory: Negative for shortness of breath. Gastrointestinal: Tenderness in the left lower quadrant region Genitourinary: Negative for dysuria. Musculoskeletal: Negative for back pain. Skin: Negative for rash. Neurological: Negative for headaches, weakness or numbness. 10 point ROS negative except as marked above and in HPI. Physical Exam - Vital signs Vitals: Temp Pulse Resp BP Pulse Ox 98.3 F 90 17 147/90 H 97 08/17/19 20:57 08/17/19 20:57 08/17/19 20:57 08/17/19 20:57 08/17/19 20:57 - Notes Notes: PHYSICAL EXAMINATION: Physical Exam: General: Overweight 44-year-old woman man in no acute distress HEENT: NC/AT, pupils equal round and reactive to light, MM moist,nares clear, Neck: supple, no adenopathy, no masses. Lungs: clear, no wheezing, no rales no rhonchi CVS: Regular rate and rhythm no murmur gallop or rub Abdomen: Soft active tenderness in the left lower quadrant region no guarding, no rebound, no masses, no hepatosplenomegaly Ext: No edema clubbing or cyanosis. Neuro: Alert and responsive, moving all 4 extremities on command, cranial nerves intact. Skin: Intact no open lesions, no rash PSYCH: Normal mood, normal affect. Course - Re-evaluation Re-evalutation: 08/18/19 04:14 CT scan of the abdomen and pelvis is negative for diverticulitis, she has diffuse diverticulosis, a dose of morphine was given which has relieved her pain completely. I have asked the patient that she use Tylenol for pain and drink plenty of fluids and follow-up with her primary care doctor as needed she has the right to return to the emergency department if needed. - Vital Signs Vital signs: Temp Pulse Resp BP Pulse Ox 98.9 F 86 20 136/72 H 97 08/18/19 01:15 08/18/19 01:15 08/18/19 01:15 08/18/19 01:15 08/18/19 01:15 - Laboratory Result Diagrams: 08/17/19 21:10 08/17/19 21:10 Laboratory results interpreted by me: 08/17/19 08/17/19 08/17/19 21:10 21:10 21:10 RDW 14.1 H BUN 5 L Ur Leukocyte Esterase TRACE H Discharge - Discharge Clinical Impression: Abdominal pain Qualifiers: Abdominal location: left lower quadrant Qualified Code(s): R10.32 - Left lower quadrant pain Condition: Good Disposition: HOME, SELF-CARE Instructions: Abdominal Pain ([facility]), Antinausea Medication ([facility]) Additional Instructions: Please push fluids and use Tylenol for pain, Zofran if you have nausea Follow-up with your doctor as needed. Referrals: TAVO CARBALLO MD [Primary Care Provider] - Follow up as needed
[2019-08-18 01:28] VITALS: BP 136/72
--- NOTE | 2019-08-18 02:39 | RADIOLOGY REPORT (SQ) ---
EXAM DESCRIPTION: [facility]: CT ABDOMEN PELVIS WITHOUT IV CONTRAST CLINICAL HISTORY: 44 years Female; Left lower quadrant abdominal pain TECHNIQUE: CT of the abdomen and pelvis without contrast. All CT scans at this facility use dose modulation, iterative reconstruction, and/or weight based dosing when appropriate to reduce radiation dose to as low as reasonably achievable. COMPARISON: CT 01/25/2018 FINDINGS: Abdomen: Liver: Enlarged, 21.5 cm craniocaudal. Gallbladder:Nondistended Pancreas:Within normal limits Spleen:Within normal limits Right kidney:No hydronephrosis. No renal or ureteral calculi. Left kidney:No hydronephrosis. No renal or ureteral calculi. Adrenal glands:Within normal limits Vascular structures:Within normal limits (although limited evaluation on noncontrast exam). Pelvis: Small bowel:No significant distention. Appendix:Within normal limits Colon: Multiple scattered diverticula. No acute pericolonic edema or colonic distention. No free intraperitoneal fluid or air. Bones: No acute bone findings. Bladder: Unremarkable. Uterus is unremarkable for this noncontrast exam. No adnexal enlargement. Note that evaluation of the bowel and solid organs is somewhat limited due to lack of intravenous and oral contrast. IMPRESSION: 1. No acute findings 2. Extensive colonic diverticulosis, but no CT evidence for acute diverticulitis 3. Hepatomegaly
== END 2019-08-18 04:47 | disposition home or self-care (01) ==
LOC: ER 20:30
DX: R10.32 Left lower quadrant pain (principal); E11.9 Type 2 diabetes mellitus without complications
CPT/HCPCS: 99284; 96374; 36415; 85025; 80053; 81001; 74176; J2270

== ENCOUNTER 2020-05-11 13:54 | Emergency (ER) | payer MEDICARE, MEDICAID ==
[2020-05-11] MEDS ORDERED: ONDANSETRON 4 MG TAB.RAPDIS PO ONE (15:00)
--- NOTE | 2020-05-11 15:02 | ER Document Report ---
ED Medical Screen (RME) - General Chief Complaint: Headache Stated Complaint: HEADACHE Time Seen by Provider: 05/11/20 14:57 Primary Care Provider: TAVO CARBALLO MD [Primary Care Provider] - Follow up as needed Mode of Arrival: Medic Information source: Patient Notes: 45-year-old female presented to ED for complaint of "severe headache x24 hours. She states she did not have any medications at home and did not have any way to take any medications. She states that the EMS did give her some Tylenol but it has not relieved her headache. She states she is nauseated. She does have a diagnosis of bipolar high cholesterol and diabetes. She is alert oriented respirations regular nonlabored speaking in full sentences. She states the headache is severe. I have greeted and performed a rapid initial assessment of this patient. A comprehensive ED assessment and evaluation of the patient, analysis of test results and completion of medical decision making process will be conducted by an additional ED providers. TRAVEL OUTSIDE OF THE [place] IN LAST 30 DAYS: No - Related Data Allergies/Adverse Reactions: Iodinated Contrast Media [IV Dye, Iodine Containing] Allergy (Verified 03/19/19 10:55) iodine [Iodine] Allergy (Verified 03/19/19 10:55) Penicillins Allergy (Verified 03/19/19 10:55) Shellfish * [Shellfish] Allergy (Verified 03/19/19 10:55) valbenazine [From Ingrezza] Allergy (Verified 03/19/19 10:55) Past Medical History - Past Medical History Cardiac Medical History: Reports: Hx Hypercholesterolemia Denies: Hx Hypertension - pt denies Pulmonary Medical History: Reports: Hx Bronchitis Endocrine Medical History: Reports: Hx Diabetes Mellitus Type 2 Renal/ Medical History: Denies: Hx Peritoneal Dialysis Psychiatric Medical History: Reports: Hx Bipolar Disorder, Hx Depression Past Surgical History: Reports: Hx Adenoidectomy, Hx Section - X4, Hx Cholecystectomy, Hx Tubal Ligation - Immunizations Hx Diphtheria, Pertussis, Tetanus Vaccination: Yes Physical Exam - Vital signs Vitals: Temp Pulse Resp BP Pulse Ox 98.3 F 94 16 128/72 H 99 05/11/20 14:23 05/11/20 14:23 05/11/20 14:23 05/11/20 14:23 05/11/20 14:23 Course - Vital Signs Vital signs: Temp Pulse Resp BP Pulse Ox 98.3 F 94 16 128/72 H 99 05/11/20 14:23 05/11/20 14:23 05/11/20 14:23 05/11/20 14:23 05/11/20 14:23 Doctor's Discharge - Discharge Referrals: TAVO CARBALLO MD [Primary Care Provider] - Follow up as needed
[2020-05-11 15:51] LABS: ABSOLUTE BASOPHILS # (AUTO) 0.1 10^3/uL (0.0-0.2); ABSOLUTE MONOCYTES (AUTO) 0.9 10^3/uL (0.1-1.4); ABSOLUTE NEUT (AUTO) 3.8 10^3/uL (1.7-8.2); BASOPHILS % (AUTO) 0.9 % (0-2); HEMATOCRIT 38.1 % (36.0-47.0); HEMOGLOBIN 13.4 g/dL (12.0-15.5); LYMPHOCYTES % (AUTO) 38.8 % (13-45); MEAN CORPUSCULAR HEMOGLOBIN 29.7 pg (27.0-33.4); MEAN CORPUSCULAR HGB CONC 35.2 g/dL (32.0-36.0); MEAN CORPUSCULAR VOLUME 84 fl (80-97); MONOCYTES % (AUTO) 11.5 % (3-13); PLATELET COUNT 332 10^3/uL (150-450); RED BLOOD COUNT 4.52 10^6/uL (3.72-5.28); RED CELL DISTRIBUTION WIDTH 14.8 % (11.5-14.0); SEGMENTED NEUTROPHILS % (AUTO) 48.8 % (42-78); TOTAL CELLS COUNTED % (AUTO) 100 %; WHITE BLOOD COUNT 7.8 10^3/uL (4.0-10.5)
[2020-05-11 15:58] LABS: APPEARANCE,URINE CLOUDY; BILIRUBIN,URINE NEGATIVE (NEGATIVE); COLOR,URINE YELLOW; GLUCOSE, URINE NEGATIVE (NEGATIVE); KETONES,URINE NEGATIVE (NEGATIVE); LEUKOCYTE ESTERASE,URINE LARGE (NEGATIVE); NITRITE,URINE NEGATIVE (NEGATIVE); PROTEIN,URINE 30 mg/dL (NEGATIVE); URINE SPECIFIC GRAVITY 1.012; UROBILINOGEN,URINE NEGATIVE mg/dL (<2.0)
[2020-05-11 16:09] LABS: ALBUMIN 4.2 g/dL (3.5-5.0); ALKALINE PHOSPHATASE 86 U/L (38-126); ANION GAP 11 (5-19); ASPARTATE AMINO TRANSFERASE 29 U/L (14-36); BILIRUBIN,DIRECT 0.3 mg/dL (0.0-0.4); BILIRUBIN,TOTAL 0.3 mg/dL (0.2-1.3); BLOOD UREA NITROGEN 6 mg/dL (7-20); CALCIUM 9.7 mg/dL (8.4-10.2); CARBON DIOXIDE 26 mmol/L (22-30); CHLORIDE 101 mmol/L (98-107); GLUCOSE 120 mg/dL (75-110); POTASSIUM 3.8 mmol/L (3.6-5.0); TOTAL PROTEIN 7.7 g/dL (6.3-8.2)
--- NOTE | 2020-05-11 19:39 | ER Document Report ---
ED Headache - General Mode of Arrival: Ambulatory Information source: Patient TRAVEL OUTSIDE OF THE U.S. IN LAST 30 DAYS: No - Related Data Home Medications: pantoprazole, tegretol, celebrex, atorvastatin <SHARAN EDMONDS - Last Filed: 05/11/20 19:39> <LUIS F BARTON - Last Filed: 05/11/20 21:40> - General Chief Complaint: Headache Stated Complaint: HEADACHE Time Seen by Provider: 05/11/20 14:57 Primary Care Provider: TAVO CABRALLO MD [Primary Care Provider] - Follow up as needed Notes: 45-year-old female patient presented emergency department chief complaint of headache. Patient reports headache started yesterday after eating ham. She reports at its worst it was 7/10. She does report that it hit her and reached max intensity very quickly. She states it has eased off some and is currently a 4/5. She was given Zofran by the triage provider, she states this did not help with her nausea. She denies any fever, chills, vomiting or neck pain. (SHARAN EDMONDS) - Related Data Allergies/Adverse Reactions: Iodinated Contrast Media [IV Dye, Iodine Containing] Allergy (Verified 03/19/19 10:55) iodine [Iodine] Allergy (Verified 03/19/19 10:55) Penicillins Allergy (Verified 03/19/19 10:55) Shellfish * [Shellfish] Allergy (Verified 03/19/19 10:55) valbenazine [From Ingrezza] Allergy (Verified 03/19/19 10:55) Past Medical History - General Information source: Patient - Social History Smoking Status: Never Smoker Chew tobacco use (# tins/day): No Frequency of alcohol use: None Drug Abuse: None Family History: Reviewed & Not Pertinent, CAD, DM, Hypertension, Other - [place] - Past Medical History Cardiac Medical History: Reports: Hx Hypercholesterolemia Denies: Hx Hypertension - pt denies Pulmonary Medical History: Reports: Hx Bronchitis Endocrine Medical History: Reports: Hx Diabetes Mellitus Type 2 Renal/ Medical History: Denies: Hx Peritoneal Dialysis Psychiatric Medical History: Reports: Hx Bipolar Disorder, Hx Depression Past Surgical History: Reports: Hx Adenoidectomy, Hx Section - X4, Hx Cholecystectomy, Hx Tubal Ligation - Immunizations Hx Diphtheria, Pertussis, Tetanus Vaccination: Yes <SHARAN EDMONDS - Last Filed: 05/11/20 19:39> Review of Systems - Review of Systems Constitutional: No symptoms reported EENT: No symptoms reported Cardiovascular: No symptoms reported Respiratory: No symptoms reported Gastrointestinal: No symptoms reported Genitourinary: No symptoms reported Female Genitourinary: No symptoms reported Musculoskeletal: No symptoms reported Skin: No symptoms reported Hematologic/Lymphatic: No symptoms reported Neurological/Psychological: Headaches <SHARAN EDMONDS - Last Filed: 05/11/20 19:39> Physical Exam <SHARAN EDMONDS - Last Filed: 05/11/20 19:39> - Vital signs Vitals: Temp Pulse Resp BP Pulse Ox 98.3 F 94 16 128/72 H 99 05/11/20 14:23 05/11/20 14:23 05/11/20 14:23 05/11/20 14:23 05/11/20 14:23 - Notes Notes: PHYSICAL EXAMINATION: GENERAL: Well-appearing, well-nourished obese female in no acute distress. HEAD: Atraumatic, normocephalic. EYES: Pupils equal round and reactive to light, extraocular movements intact, conjunctiva are normal. ENT: Nares patent, oropharynx clear without exudates. Moist mucous membranes. NECK: Normal range of motion, supple without lymphadenopathy LUNGS: Breath sounds clear to auscultation bilaterally and equal. No wheezes rales or rhonchi. HEART: Regular rate and rhythm without murmurs ABDOMEN: Soft, nontender, nondistended abdomen. No guarding, no rebound. No masses appreciated. Female : deferred Musculoskeletal: Normal range of motion, no pitting or edema. No cyanosis. NEUROLOGICAL: Cranial nerves grossly intact. Normal speech, normal gait. Normal sensory, motor exams PSYCH: Normal mood, normal affect. SKIN: Warm, Dry, normal turgor, no rashes or lesions noted. (SHARAN EDMONDS) Course - Laboratory Result Diagrams: 05/11/20 15:35 05/11/20 15:35 <SHARAN EDMONDS - Last Filed: 05/11/20 19:39> - Laboratory Result Diagrams: 05/11/20 15:35 05/11/20 15:35 <LUIS F BARTON - Last Filed: 05/11/20 21:40> - Re-evaluation Re-evalutation: Patient appears well, nontoxic. The work-up was initiated by the triage provider. There was blood work, urine and Zofran ordered but unfortunately no migraine cocktail. Her vital signs were reviewed she is not hypertensive. Her blood work was unremarkable. Urinalysis does show an incidental urinary tract infection. This was discussed with the patient and patient would like treatment for it although she is asymptomatic. We will send urine for culture. I am now placing an order for migraine medications and will hand this patient off to Luis F barton for reevaluation. (SHARAN EDMONDS) 05/11/20 21:37 Patient states that her headache has gone away. We will give her headache regimen. We will start her on Keflex for urinary tract infection. She is in agreement with this plan. Follow-up precautions were given. Verbal discharge instructions were given to the patient. They verbalized understanding. They are stable for discharge. (LUIS F BARTON) - Vital Signs Vital signs: Temp Pulse Resp BP Pulse Ox 98.3 F 94 16 128/72 H 99 05/11/20 18:23 05/11/20 14:23 05/11/20 14:23 05/11/20 14:23 05/11/20 14:23 - Laboratory Laboratory results interpreted by me: 05/11/20 05/11/20 05/11/20 15:30 15:35 15:35 RDW 14.8 H BUN 6 L Glucose 120 H Neonat Total Bilirubin 0.0 L Urine Protein 30 H Urine Blood LARGE H Ur Leukocyte Esterase LARGE H Discharge <SHARAN EDMONDS - Last Filed: 05/11/20 19:39> <LUIS F BARTON - Last Filed: 05/11/20 21:40> - Discharge Clinical Impression: Headache Qualifiers: Headache type: unspecified Headache chronicity pattern: acute headache Intractability: not intractable Qualified Code(s): R51.9 - Headache, unspecified Urinary tract infection Qualifiers: Urinary tract infection type: acute cystitis Hematuria presence: with hematuria Qualified Code(s): N30.01 - Acute cystitis with hematuria Condition: Stable Disposition: HOME, SELF-CARE Instructions: Urinary Tract Infection ([facility]), Headache ([facility]) Additional Instructions: You were seen today for a migraine headache. Please follow-up with your primary care doctor regarding today's ED visit. Return to emergency department immediately if you develop a headache that gets to its maximum severity within 20 minutes of onset, you pass out, you develop weakness, numbness, changes in your vision, become unable to keep any fluids down for more than 12 hours, or develop a fever greater than 100.4 degrees Fahrenheit. If you develop a similar migraine headache in the future I recommend that you immediately take 600 mg of ibuprofen and 50 mg of Benadryl and go to sleep as quickly as possible. This can often prevent your migraine headache from becoming severe. Your urine shows findings consistent with a urinary tract infection. Please take all the antibiotics as directed even if your symptoms have improved. Please follow-up with your primary care physician as needed. Return to emergency room if you develop fever >101F, persistent vomiting, become lethargic, have severe pain in your sides, or any other symptoms that are concerning to you. Prescriptions: Cephalexin [Keflex] 500 mg PO BID #14 capsule Referrals: TAVO CARBALLO MD [Primary Care Provider] - Follow up in 3-5 days
[2020-05-11] MEDS ORDERED: KETOROLAC TROMETHAMINE INJ/PF 30 MG/1 ML SDV IV ONE (19:40)
[2020-05-11] MEDS ORDERED: DIPHENHYDRAMINE HCL 50 MG/ML VIAL IV ONE (19:40)
[2020-05-11] MEDS ORDERED: PROCHLORPERAZINE EDISYLATE INJ 10 MG/2 ML VIAL IV ONE (19:41)
[2020-05-11] MEDS ORDERED: NORMAL SALINE 1000 ML 1,000 ML IV ONE (19:41)
[2020-05-11] MEDS ORDERED: CEPHALEXIN 500 MG CAPSULE PO ONE (19:47)
[2020-05-11 22:48] VITALS: BP 111/57
== END 2020-05-11 22:46 | disposition home or self-care (01) ==
LOC: ER 13:54
DX: R51.9 Headache, unspecified (principal); N30.01 Acute cystitis with hematuria; R11.0 Nausea; E11.9 Type 2 diabetes mellitus without complications; Z91.041 Radiographic dye allergy status; Z88.0 Allergy status to penicillin; Z91.013 Allergy to seafood; Z88.8 Allergy status to other drugs, medicaments and biological substances
CPT/HCPCS: 99284; 96361; 96374; 96375; 36415; 87086; 83690; 84703; 85025; 80053; 81001; A9270 ×2; J1200; J1885; J0780; J7030; S0119

== ENCOUNTER 2020-08-13 23:35 | Emergency (ER) | payer MEDICARE, MEDICAID ==
[2020-08-13 23:47] VITALS: BP 143/80
--- NOTE | 2020-08-14 00:02 | ER Document Report ---
ED Medical Screen (RME) - General Stated Complaint: PSYCH ISSUE Time Seen by Provider: 08/13/20 23:54 Primary Care Provider: TAVO CARBALLO MD [Primary Care Provider] - Follow up as needed TRAVEL OUTSIDE OF THE U.S. IN LAST 30 DAYS: No - HPI Patient complains to provider of: Would like a psychiatric evaluation Notes: 08/14/20 00:00 Patient here stating she has a history of bipolar disease and she is been out of her medication for the last 2 days. She cannot tell me what medication she takes. She states that she would like to have a psychiatric evaluation because she is under stress. She denies any homicidal or suicidal ideation. She is alert and oriented x3. She denies any physical complaints to me at this time. She denies any other specific complaints at this time. Exam: Nondistressed, nontoxic. Mild tachycardia, lungs clear and equal throughout. Nonfocal neuro exam. An initial examination was made on the patient as part of the triage process, and it was determined a more comprehensive evaluation was necessary. Initial labs were ordered and patient was transferred to another provider in the ED who assumed care and finished evaluation and plan. - Related Data Allergies/Adverse Reactions: Iodinated Contrast Media [IV Dye, Iodine Containing] Allergy (Verified 03/19/19 10:55) iodine [Iodine] Allergy (Verified 03/19/19 10:55) Penicillins Allergy (Verified 03/19/19 10:55) Shellfish * [Shellfish] Allergy (Verified 03/19/19 10:55) valbenazine [From Ingrezza] Allergy (Verified 03/19/19 10:55) Past Medical History - Past Medical History Cardiac Medical History: Reports: Hx Hypercholesterolemia Denies: Hx Hypertension - pt denies Pulmonary Medical History: Reports: Hx Bronchitis Endocrine Medical History: Reports: Hx Diabetes Mellitus Type 2 Renal/ Medical History: Denies: Hx Peritoneal Dialysis Psychiatric Medical History: Reports: Hx Bipolar Disorder, Hx Depression Past Surgical History: Reports: Hx Adenoidectomy, Hx Section - X4, Hx Cholecystectomy, Hx Tubal Ligation - Immunizations Hx Diphtheria, Pertussis, Tetanus Vaccination: Yes Physical Exam - Vital signs Vitals: Temp Pulse BP Pulse Ox 99.6 F 122 H 143/80 H 98 08/13/20 23:46 08/13/20 23:46 08/13/20 23:46 08/13/20 23:46 Course - Vital Signs Vital signs: Temp Pulse Resp BP Pulse Ox 99.6 F 122 H 143/80 H 98 08/13/20 23:46 08/13/20 23:46 08/13/20 23:46 08/13/20 23:46 Doctor's Discharge - Discharge Referrals: TAVO CARBALLO MD [Primary Care Provider] - Follow up as needed
== END 2020-08-14 00:43 | disposition left against medical advice (07) ==
LOC: ER 23:35
DX: F31.9 Bipolar disorder, unspecified (principal); R00.0 Tachycardia, unspecified; Z91.041 Radiographic dye allergy status; Z88.0 Allergy status to penicillin; Z91.013 Allergy to seafood; Z88.8 Allergy status to other drugs, medicaments and biological substances; Z53.20 Procedure and treatment not carried out because of patient's decision for unspecified reasons
CPT/HCPCS: 99281

== ENCOUNTER 2020-08-15 12:45 | Emergency (ER) | payer MEDICARE, MEDICAID ==
[2020-08-15] MEDS ORDERED: AMMONIA INHALANTS 10 AMPUL/BOX IH ONE (13:11)
[2020-08-15 15:02] LABS: ABSOLUTE LYMPHOCYTES (AUTO) 2.8 10^3/uL (0.5-4.7); ABSOLUTE MONOCYTES (AUTO) 0.6 10^3/uL (0.1-1.4); ABSOLUTE NEUT (AUTO) 4.3 10^3/uL (1.7-8.2); BASOPHILS % (AUTO) 0.5 % (0-2); EOSINOPHILS % (AUTO) 0.1 % (0-6); HEMATOCRIT 38.2 % (36.0-47.0); HEMOGLOBIN 12.1 g/dL (12.0-15.5); LYMPHOCYTES % (AUTO) 35.7 % (13-45); MEAN CORPUSCULAR HEMOGLOBIN 28.1 pg (27.0-33.4); MEAN CORPUSCULAR HGB CONC 31.8 g/dL (32.0-36.0); MEAN CORPUSCULAR VOLUME 88 fl (80-97); MONOCYTES % (AUTO) 7.9 % (3-13); PLATELET COUNT 352 10^3/uL (150-450); RED BLOOD COUNT 4.32 10^6/uL (3.72-5.28); RED CELL DISTRIBUTION WIDTH 17.3 % (11.5-14.0); SEGMENTED NEUTROPHILS % (AUTO) 55.8 % (42-78); TOTAL CELLS COUNTED % (AUTO) 100 %; WHITE BLOOD COUNT 7.8 10^3/uL (4.0-10.5)
[2020-08-15 15:22] LABS: ALBUMIN 4.1 g/dL (3.5-5.0); ALKALINE PHOSPHATASE 93 U/L (38-126); ANION GAP 11 (5-19); ASPARTATE AMINO TRANSFERASE 40 U/L (14-36); BILIRUBIN,DIRECT 0.2 mg/dL (0.0-0.4); BILIRUBIN,TOTAL 0.4 mg/dL (0.2-1.3); BLOOD UREA NITROGEN 8 mg/dL (7-20); CALCIUM 9.4 mg/dL (8.4-10.2); CARBON DIOXIDE 26 mmol/L (22-30); CHLORIDE 103 mmol/L (98-107); GLUCOSE 130 mg/dL (75-110); POTASSIUM 3.5 mmol/L (3.6-5.0); TOTAL PROTEIN 7.6 g/dL (6.3-8.2)
[2020-08-15 15:24] LABS: ALCOHOL < 10 mg/dL (NONE DETECTED)
[2020-08-15] MEDS ORDERED: CHLORPROMAZINE HCL INJ 25 MG/1 ML AMPULE IM ONE (15:35)
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
--- NOTE | 2020-08-15 18:05 | RADIOLOGY REPORT (SQ) ---
EXAM DESCRIPTION: CT HEAD WITHOUT IMAGES COMPLETED DATE/TIME: 08/15/2020 5:51 pm REASON FOR STUDY: ams COMPARISON: None. TECHNIQUE: Axial images acquired through the brain without intravenous contrast. Images reviewed wi th bone, brain and subdural windows. Additional sagittal and coronal reconstructions were generated. Images stored on PACS. All CT scanners at this facility use dose modulation, iterative reconstruction, and/or weight based d osing when appropriate to reduce radiation dose to as low as reasonably achievable (ALARA). [facility]: Dose Right [facility]: CareDose [facility]: Dose Right [facility]: Teradose 4D [facility]: Smart Register My Info RADIATION DOSE: CT Rad equipment meets quality standard of care and radiation dose reduction techniq ues were employed. CTDIvol: 48.8 mGy. DLP: 860 mGy-cm. mGy. LIMITATIONS: None. FINDINGS: VENTRICLES: Normal size and contour. CEREBRUM: No masses. No hemorrhage. No midline shift. No evidence for acute infarction. Normal gra y/white matter differentiation. No areas of low density in the white matter. CEREBELLUM: No masses. No hemorrhage. No alteration of density. No evidence for acute infarction. EXTRAAXIAL SPACES: No fluid collections. No masses. ORBITS AND GLOBE: No intra- or extraconal masses. Normal contour of globe without masses. CALVARIUM: No fracture. PARANASAL SINUSES: No fluid or mucosal thickening. SOFT TISSUES: No mass or hematoma. OTHER: No other significant finding. IMPRESSION: NORMAL BRAIN CT WITHOUT CONTRAST. EVIDENCE OF ACUTE STROKE: NO. COMMENT: Quality ID # [id number]: Final reports with documentation of one or more dose reduction techniques (e.g., Automated exposure control, adjustment of the mA and/or kV according to patient size, use of iterative reconstruction technique) TECHNICAL DOCUMENTATION: JOB ID: [id number] 2010 [employer]- All Rights Reserved Reading location - IP/workstation name: [email or web address]
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
[2020-08-15 18:59] LABS: APPEARANCE,URINE CLOUDY; BILIRUBIN,URINE NEGATIVE (NEGATIVE); COLOR,URINE YELLOW; GLUCOSE, URINE NEGATIVE (NEGATIVE); KETONES,URINE TRACE mg/dL (NEGATIVE); PROTEIN,URINE 30 mg/dL (NEGATIVE); URINE SPECIFIC GRAVITY 1.014; UROBILINOGEN,URINE NEGATIVE mg/dL (<2.0)
[2020-08-15 19:11] LABS: URINE BARBITURATES SCREEN NEGATIVE; URINE BENZODIAZEPINES SCREEN NEGATIVE; URINE COCAINE SCREEN NEGATIVE; URINE MARIJUANA (THC) SCREEN NEGATIVE; URINE METHADONE SCREEN NEGATIVE; URINE PHENCYCLIDINE SCREEN NEGATIVE
[2020-08-15 19:16] LABS: URINE AMPHETAMINES SCREEN NEGATIVE
[2020-08-15 22:06] VITALS: BP 131/67
--- NOTE | 2020-08-15 23:46 | EKG REPORT ---
SEVERITY:- OTHERWISE NORMAL ECG - SINUS TACHYCARDIA : Confirmed by: Fatoumata Garcia 15-Aug-2020 23:46:00
== END 2020-08-15 22:35 | disposition home or self-care (01) ==
LOC: ER 12:45
DX: F31.9 Bipolar disorder, unspecified (principal); R41.82 Altered mental status, unspecified; E66.9 Obesity, unspecified; Z78.1 Physical restraint status; E11.9 Type 2 diabetes mellitus without complications; R00.0 Tachycardia, unspecified; Z91.041 Radiographic dye allergy status; Z88.0 Allergy status to penicillin; Z91.013 Allergy to seafood; Z88.8 Allergy status to other drugs, medicaments and biological substances
CPT/HCPCS: 93005; 99285; 36415; 80307 ×2; 85025; 80053; 81001; 70450; 93010; J3490; J3230

== ENCOUNTER 2020-08-16 08:12 | Emergency (ER) | payer MEDICARE, MEDICAID ==
[2020-08-16 08:20] VITALS: BP 119/77
== END 2020-08-16 09:32 | disposition left against medical advice (07) ==
LOC: ER 08:12
DX: Z53.21 Procedure and treatment not carried out due to patient leaving prior to being seen by health care provider (principal)